=== PATIENT | male | born 1950 | race Caucasian/White ===

== ENCOUNTER → 2024-08-24 | Outpatient (CLI) | payer OTHER, SELFPAY ==
--- NOTE | 2024-08-24 07:55 | ECHOD_ITS ---
Reason For Study Reason For Study: Syncope Procedure This was a 2D Doppler, Color Flow transthoracic echocardiogram. Exam performed in department. Left Ventricle Normal LV size. The left ventricular ejection fraction is 65 %. Stage 1 diastolic dysfunction. No regional wall motion abnormalities noted. Right Ventricle Normal RV size. Normal systolic function. Atria Normal left atrium. Normal right atrium. Mitral Valve Normal mitral valve. Tricuspid Valve Normal tricuspid valve. Aortic Valve Trisinus/trileaflet aortic valve. Pulmonic Valve Normal pulmonic valve. Great Vessels Normal aortic root. The pulmonary artery is normal size. Inferior vena cava collapse with respiration. Pericardium/Pleural No pericardial effusion. MMode/2D Measurements & Calculations LVIDd: 5.0 cm IVSd: 1.2 cm Ao root diam: 3.9 cm LVIDs: 3.3 cm LVPWd: 1.2 cm RVDd: 3.1 cm FS: 34.0 % LAV(MOD-bp): 42.2 ml LVAd ap4: 30.9 cm2 SV(MOD-sp4): 68.9 ml LAV(MOD-bp) Indexed: 23.1 ml/m2 LVLd ap4: 7.4 cm SI(MOD-sp4): 37.8 ml/m2 LAV(MOD-sp2): 47.0 ml EDV(MOD-sp4): 105.1 ml LAV(MOD-sp4): 38.1 ml EDV(sp4-el): 110.0 ml LVAs ap4: 15.8 cm2 LVLs ap4: 6.0 cm ESV(MOD-sp4): 36.2 ml ESV(sp4-el): 35.1 ml EF(MOD-sp4): 65.6 % EF(sp4-el): 68.1 % SV(sp4-el): 74.9 ml LA A4 area: 15.4 cm2 LA dimension(2D): 4.4 cm RA A4 area: 14.4 cm2 TAPSE: 2.6 cm Time Measurements MV dec time: 0.24 sec Doppler Measurements & Calculations MV E max price: 86.5 cm/sec Lat Peak E' Price: 7.7 cm/sec Med Peak E' Price: 8.8 cm/sec MV A max price: 95.2 cm/sec E/E' lat: 11.2 E/E' med: 9.8 MV E/A: 0.91 MV V2 max: 135.9 cm/sec MV P1/2t max price: 101.2 cm/sec Ao V2 max: 147.4 cm/sec MV max P.4 mmHg MV P1/2t: 92.8 msec Ao max P.7 mmHg MV V2 mean: 65.5 cm/sec Ao V2 mean: 102.6 cm/sec MV mean P.0 mmHg MV dec slope: 319.3 cm/sec2 Ao mean P.8 mmHg MV V2 VTI: 43.2 cm MVA(P1/2t): 2.4 cm2 Ao V2 VTI: 37.0 cm AV (velocity ratio): 0.78 LV V1 max: 124.4 cm/sec PA V2 max: 125.2 cm/sec LV V1 max P.2 mmHg PA V2 mean: 81.9 cm/sec LV V1 mean P.1 mmHg LV V1 mean: 80.7 cm/sec LV V1 VTI: 28.9 cm ECHO/Echo Complete Interpretation Summary Normal LV size. The left ventricular ejection fraction is 65 %. Stage 1 diastolic dysfunction. Structurally normal valves. Ordering Physician: Cl Brooks Referring Physician: Cl Brooks Performed By: Charlie Mccann RCS
--- OUTSIDE RECORDS SUMMARY | 2024-08-24 08:05 | XMS RPT_ITS | CCD ---
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 [facility] Comment on above: Performed By: #### M DW, ALC, ADIFF, PRO, CMP, APTT, LAC, GFR, ANEU, CBC, ABSGEL, ABOM ####[address] [address] Lymphocytes/100 WBC (Bld) 5.5 % Low 20.0-40.0 [facility] Comment on above: Performed By: #### M DW, ALC, ADIFF, PRO, CMP, APTT, LAC, GFR, ANEU, CBC, ABSGEL, ABOM ####[place] [id number] [address] [place] [address] Monocyte, Absolute 0.6 10 3/mcL Normal 0.1-1.4 [facility] Comment on above: Performed By: #### M DW, ALC, ADIFF, PRO, CMP, APTT, LAC, GFR, ANEU, CBC, ABSGEL, ABOM ####[address] [address] Monocytes/100 WBC (Bld) 4.7 % Normal 2.0-13.0 [facility] Comment on above: Performed By: #### M DW, ALC, ADIFF, PRO, CMP, APTT, LAC, GFR, ANEU, CBC, ABSGEL, ABOM ####[address] [address] Neutrophils/100 WBC (Bld) 89.5 % High 50.0-75.0 [facility] Comment on above: Performed By: #### M DW, ALC, ADIFF, PRO, CMP, APTT, LAC, GFR, ANEU, CBC, ABSGEL, ABOM ####[address] [address] .GFRon 04-25-2024 Estimated Glomerular Filtration Rate 90 ml/min/1.73sqm Normal [facility] Comment on above: Result Comment: Stages of Chronic Kidney Disease (CKD) Stage Description eGFR(ml/min/1.73 sq.m.) CKD 1 Normal kidney function or >=90 normal kindney function with possible kidney damage (ex. Proteinuria) CKD 2 Kidney damage with mild loss 60-89 of kidney function CKD 3a Mild to moderate loss of kidney 45-59 function CKD 3b Moderate to severe loss of 30-44 of kindey function CKD 4 Severe loss of kidney function 15-29 CKD 5 Kidney failure <15 Note: (go live 2024) the eGFR calculation was updated to the 2020 CKD-EPI creatinine equation without a race factor to calculate the eGFR results. Performed By: #### M DW, ALC, ADIFF, PRO, CMP, APTT, LAC, GFR, ANEU, CBC, ABSGEL, ABOM ####[place] [id number] .MDWon 04-25-2024 Monocyte Distribution Width 18.16 Normal 0.00-20.00 [facility] Comment on above: Result Comment: For ED adult patients suspected of sepsis, MDW<=20.0 does not rule out sepsis or risk of sepsis Performed By: #### M DW, ALC, ADIFF, PRO, CMP, APTT, LAC, GFR, ANEU, CBC, ABSGEL, ABOM ####[place] [address] .NEUABSon 04-25-2024 Neutrophil, Absolute 11.0 10 3/mcL High 2.3-8.1 [facility] Comment on above: Performed By: #### M DW, ALC, ADIFF, PRO, CMP, APTT, LAC, GFR, ANEU, CBC, ABSGEL, ABOM ####[place] [address] ABS (Gel)on 04-25-2024 ABSC Interp (Gel) Negative [facility] Comment on above: Performed By: #### M DW, ALC, ADIFF, PRO, CMP, APTT, LAC, GFR, ANEU, CBC, ABSGEL, ABOM ####[place] [address] Adonay 04-25-2024 Ethanol Level <10.0 [facility] Comment on above: Performed By: #### M DW, ALC, ADIFF, PRO, CMP, APTT, LAC, GFR, ANEU, CBC, ABSGEL, ABOM ####[place] [address] Ethanol Level <3 Normal [facility] Comment on above: Performed By: #### A LC #### [facility] [address] [place], [place] [address] APTTon 04-25-2024 aPTT Coag (Bld) [Time] 29.9 s Normal 25.0-35.0 [facility] Comment on above: Result Comment: For Heparin anticoagulation therapy, the recommended therapeutic range is: 54-77 seconds (APTT Correlation with Anti-Xa therapeutic range of 0.3-0.7 units/ml). PLEASE REFERENCE THE PHARMACY PROTOCOL FOR DOSING. Performed By: #### M DW, ALC, ADIFF, PRO, CMP, APTT, LAC, GFR, ANEU, CBC, ABSGEL, ABOM ####[place] [address] BGon 04-25-2024 Base excess Calc (Bld) [Moles/Vol] -1.8000 mmol/L Normal [facility] Comment on above: Performed By: #### B G ####[place] [address] CO2 [Moles/Vol] 22.3 mmol/L Normal 22.0-30.0 [facility] Comment on above: Performed By: #### B G ####[place] [address] HCO3 (Bld) [Moles/Vol] 21.3 mmol/L Normal 21.0-29.0 [facility] Comment on above: Performed By: #### B G ####[place] [address] Oxygen (Bld) [Partial pressure] 134.8 mm[Hg] High 74.0-108.0 [facility] Comment on above: Performed By: #### B G ####[place] [address] Oxygen saturation in Blood 99.2 % High 92.0-96.0 [facility] Comment on above: Performed By: #### B G ####[place] [address] pCO2 31.8 mmHg Low 32.0-46.0 [facility] Comment on above: Performed By: #### B G ####[place] [id number] pH (Bld) 7.444 [pH] Normal 7.380-7.460 [facility] Comment on above: Performed By: #### B G ####[address] [address] [place] [address] Base excess Calc (Bld) [Moles/Vol] -2.5000 mmol/L Normal [facility] Comment on above: Performed By: #### B G #### [address] [address] CO2 [Moles/Vol] 23.8 mmol/L Normal 22.0-30.0 [facility] Comment on above: Performed By: #### B G #### [address] [address] HCO3 (Bld) [Moles/Vol] 22.6 mmol/L Normal 21.0-29.0 [facility] Comment on above: Performed By: #### B G #### [place] [id number] Oxygen (Bld) [Partial pressure] 106.5 mm[Hg] Normal 74.0-108.0 [facility] Comment on above: Performed By: #### B G #### [place] [id number] Oxygen saturation in Blood 98.1 % High 92.0-96.0 [facility] Comment on above: Performed By: #### B G #### [place] [id number] pCO2 40.1 mmHg Normal 32.0-46.0 [facility] Comment on above: Performed By: #### B G #### [address] [address] pH (Bld) 7.368 [pH] Low 7.380-7.460 [facility] Comment on above: Performed By: #### B G #### [address] [address] CBCon 04-25-2024 Erythrocyte distribution width (RBC) [Ratio] 13.7 % Normal 11.5-15.5 [facility] Comment on above: Performed By: #### M DW, ALC, ADIFF, PRO, CMP, APTT, LAC, GFR, ANEU, CBC, ABSGEL, ABOM ####[address] [address] Hematocrit (Bld) [Volume fraction] 40.6 % Normal 40.0-52.0 [facility] Comment on above: Performed By: #### M DW, ALC, ADIFF, PRO, CMP, APTT, LAC, GFR, ANEU, CBC, ABSGEL, ABOM ####[place] [address] Hgb 13.7 G/dL Normal 13.0-17.5 [facility] Comment on above: Performed By: #### M DW, ALC, ADIFF, PRO, CMP, APTT, LAC, GFR, ANEU, CBC, ABSGEL, ABOM ####[place] [address] MCH (RBC) [Entitic mass] 29.5 pg Normal 27.0-33.0 [facility] Comment on above: Performed By: #### M DW, ALC, ADIFF, PRO, CMP, APTT, LAC, GFR, ANEU, CBC, ABSGEL, ABOM ####[place] [address] MCHC 33.8 G/dL Normal 32.0-36.0 [facility] Comment on above: Performed By: #### M DW, ALC, ADIFF, PRO, CMP, APTT, LAC, GFR, ANEU, CBC, ABSGEL, ABOM ####[place] [address] MCV (RBC) [Entitic vol] 87.3 fL Normal 81.0-100.0 [facility] Comment on above: Performed By: #### M DW, ALC, ADIFF, PRO, CMP, APTT, LAC, GFR, ANEU, CBC, ABSGEL, ABOM ####[place] [address] Platelet 202 10 3/mcL Normal 150-450 [facility] Comment on above: Performed By: #### M DW, ALC, ADIFF, PRO, CMP, APTT, LAC, GFR, ANEU, CBC, ABSGEL, ABOM ####[place] [address] Platelet mean volume (Bld) [Entitic vol] 7.9 fL Normal 6.4-10.5 [facility] Comment on above: Performed By: #### M DW, ALC, ADIFF, PRO, CMP, APTT, LAC, GFR, ANEU, CBC, ABSGEL, ABOM ####[address] [address] RBC 4.65 10 6/mcL Normal 4.50-6.00 [facility] Comment on above: Performed By: #### M DW, ALC, ADIFF, PRO, CMP, APTT, LAC, GFR, ANEU, CBC, ABSGEL, ABOM ####[address] [address] WBC 12.3 10 3/mcL High 4.5-10.8 [facility] Comment on above: Performed By: #### M DW, ALC, ADIFF, PRO, CMP, APTT, LAC, GFR, ANEU, CBC, ABSGEL, ABOM ####[place] [address] CBC + DIFFon 04-25-2024 Baso # 0.02 x10EE3/UL Normal 0.00 - 0.10 [facility] Comment on above: Performed By: #### 2 95652 ####[facility],[address] [place] [address] Basophils/100 WBC (Bld) 0.3 % Normal 0.0 - 2.0 [facility] Comment on above: Performed By: #### 2 21133 ####[facility],[address] [place] [address] CBC + DIFF Normal [facility] Comment on above: Result Comment: CBC- COMPLETE BLOOD COUNT Performed By: #### 2 74081 ####[facility],[address] [place] [address] EO # 0.17 x10EE3/UL Normal 0.00 - 0.50 [facility] Comment on above: Performed By: #### 2 27133 ####[facility],[address] [place] [address] Eosinophils/100 WBC (Bld) 2.4 % Normal 0.0 - 7.0 [facility] Comment on above: Performed By: #### 2 35391 ####[facility],[address] [place] [address] Erythrocyte distribution width (RBC) [Ratio] 14.2 % Normal 12.0 - 15.6 [facility] Comment on above: Performed By: #### 2 86048 ####[facility],[address] [place] [address] Hematocrit (Bld) [Volume fraction] 43.2 % Normal 40.0 - 52.0 [facility] Comment on above: Performed By: #### 2 66612 ####[facility],[address] [place] [address] Hemoglobin (Bld) [Mass/Vol] 14.4 g/dL Normal 13.0 - 17.5 [facility] Comment on above: Performed By: #### 2 58267 ####[facility],[address] [place] [address] Lymph # 3.33 x10EE3/UL High 0.80 - 2.80 [facility] Comment on above: Performed By: #### 2 57074 ####[facility],[address] [place], [place] [phone] Lymphocytes/100 WBC (Bld) 48.2 % High 20.0 - 45.0 [facility] Comment on above: Performed By: #### 2 66417 ####[facility],[address] [place], [place] [phone] MANUAL DIFF N/A Normal [facility] Comment on above: Performed By: #### 2 58192 ####[facility],[address] [place], [place] [id number] MCH (RBC) [Entitic mass] 29 pg Normal 27 - 33 [facility] Comment on above: Performed By: #### 2 04121 ####[facility],[address] [place] [address] MCHC 33 X10 3 Normal 32 - 36 [facility] Comment on above: Performed By: #### 2 33707 ####[facility],[address] [place] [address] MCV (RBC) [Entitic vol] 88 fL Normal 81 - 98 [facility] Comment on above: Performed By: #### 2 42569 ####[facility],[address] [place] [address] [place] # 0.49 x10EE3/UL Normal 0.20 - 1.00 [facility] Comment on above: Performed By: #### 2 39199 ####[facility],[address] [place] [address] MONOS % 7.1 % Normal 0.0 - 10.0 [facility] Comment on above: Performed By: #### 2 55708 ####[facility],[address] [place], [place] [phone] Morphology Donte (Bld) [Interp] N/A Normal [facility] Comment on above: Performed By: #### 2 76195 ####[facility],[address] [place] [address] Neut # 2.91 x10EE3/UL Normal 1.50 - 7.10 [facility] Comment on above: Performed By: #### 2 94336 ####[facility],[address] [place], [place] [phone] Neutrophils/100 WBC (Bld) 42.0 % Low 46.0 - 76.0 [facility] Comment on above: Performed By: #### 2 52963 ####[facility],[address] [place] [address] PLATELET 256 x10EE3/UL Normal 150 - 450 [facility] Comment on above: Performed By: #### 2 73464 ####[facility],[address] [place] [address] Platelet mean volume (Bld) [Entitic vol] 7.6 fL Normal 6.4 - 10.5 [facility] Comment on above: Result Comment: AUTO MATED DIFFERENTIAL Performed By: #### 2 71598 ####[facility],[address] [place] [address] RBC 4.91 x 10EE6/UL Normal 4.50 - 6.00 [facility] Comment on above: Performed By: #### 2 98154 ####[facility],[address] [place], [place] [phone] WBC 6.9 x 10EE3/UL Normal 4.5 - 10.8 [facility] Comment on above: Performed By: #### 2 04445 ####[facility],[address] [place] [address] CHEST 1 VIEW (PICC/ET PLACEM ENTon 04-25-2024 CHEST 1 VIEW (PICC/ET PLACEMENT [place] [address] Patient: JAMES GAITAN Phone#: : 1950 Age: 73 Gender: M Pt. Type: ER Account: [id number] Location: [facility] Ordering: DR. KOSTA MEDINA Exam Date: 04/25/2024/16:19 Family Phys: Charge Code: [id number] Physician: [place] Order #: [id number] Dose#: PROCEDURE: CHEST 1 VIEW (PICC/ET PLACEMENT) COMPARISON: None. INDICATIONS: Tube placement. FINDINGS: LUNGS: Normal. No significant pulmonary parenchymal abnormalities. VASCULATURE: Normal. Unremarkable pulmonary vasculature. CARDIAC: Normal. No cardiac silhouette abnormality or cardiomegaly. MEDIASTINUM: Normal. No visible mass or adenopathy. PLEURA: Normal. No effusion or pleural thickening. BONES: Normal. No fracture or visible bony lesion. OTHER: Endotracheal tube is present terminating 5 centimeters above the manuel. Nasogastric tube is present terminating in the gastric body. CONCLUSION: 1. Endotracheal tube terminates above the level the manuel. 2. Nasogastric tube is present terminating in the gastric body. Dictated by: Suzi Rose MD on 04/25/2024 at 16:43 Approved by: Suzi Rose MD on 04/25/2024 at 16:50 Normal [facility] CMPon 04-25-2024 Albumin Level 3.9 G/dL Normal 3.2-4.8 [facility] Comment on above: Performed By: #### M DW, ALC, ADIFF, PRO, CMP, APTT, LAC, GFR, ANEU, CBC, ABSGEL, ABOM ####[address] [address] Albumin/Globulin [Mass ratio] 1.5 {ratio} Normal 0.9-1.6 [facility] Comment on above: Performed By: #### M DW, ALC, ADIFF, PRO, CMP, APTT, LAC, GFR, ANEU, CBC, ABSGEL, ABOM ####[address] [address] ALP [Catalytic activity/Vol] 65 U/L Normal 38-126 [facility] Comment on above: Performed By: #### M DW, ALC, ADIFF, PRO, CMP, APTT, LAC, GFR, ANEU, CBC, ABSGEL, ABOM ####[address] [address] ALT [Catalytic activity/Vol] 23 U/L Normal 12-55 [facility] Comment on above: Performed By: #### M DW, ALC, ADIFF, PRO, CMP, APTT, LAC, GFR, ANEU, CBC, ABSGEL, ABOM ####[address] [address] AST [Catalytic activity/Vol] 26 U/L Normal 8-34 [facility] Comment on above: Performed By: #### M DW, ALC, ADIFF, PRO, CMP, APTT, LAC, GFR, ANEU, CBC, ABSGEL, ABOM ####[address] [address] Bili Total 0.60 mg/dL Normal 0.20-1.20 [facility] Comment on above: Result Comment: Use of this assay is not recommended for patients undergoing treatment with eltrombopag due to the potential for falsely elevated results. Performed By: #### M DW, ALC, ADIFF, PRO, CMP, APTT, LAC, GFR, ANEU, CBC, ABSGEL, ABOM ####[place] [address] BUN/Creatinine Ratio 12.5 ratio Normal 10.0-22.0 [facility] Comment on above: Performed By: #### M DW, ALC, ADIFF, PRO, CMP, APTT, LAC, GFR, ANEU, CBC, ABSGEL, ABOM ####[place] [id number] Calcium [Mass/Vol] 8.6 mg/dL Low 8.7-10.4 [facility] Comment on above: Performed By: #### M DW, ALC, ADIFF, PRO, CMP, APTT, LAC, GFR, ANEU, CBC, ABSGEL, ABOM ####[place] [phone] Chloride [Moles/Vol] 105 mmol/L Normal 98-110 [facility] Comment on above: Performed By: #### M DW, ALC, ADIFF, PRO, CMP, APTT, LAC, GFR, ANEU, CBC, ABSGEL, ABOM ####[place] [phone] CO2 [Moles/Vol] 27 mmol/L Normal 22-32 [facility] Comment on above: Performed By: #### M DW, ALC, ADIFF, PRO, CMP, APTT, LAC, GFR, ANEU, CBC, ABSGEL, ABOM ####[place] [phone] Creatinine [Mass/Vol] 0.88 mg/dL Normal 0.60-1.40 [facility] Comment on above: Result Comment: Test ing performed on Farman analyzer using enzymatic creatinine methodology. Performed By: #### M DW, ALC, ADIFF, PRO, CMP, APTT, LAC, GFR, ANEU, CBC, ABSGEL, ABOM ####[place] [address] Electrolyte Balance 7.0 mEq/L Normal 4.0-15.0 [facility] Comment on above: Performed By: #### M DW, ALC, ADIFF, PRO, CMP, APTT, LAC, GFR, ANEU, CBC, ABSGEL, ABOM ####[address] [address] Globulin 2.6 G/dL Normal 1.5-3.8 [facility] Comment on above: Performed By: #### M DW, ALC, ADIFF, PRO, CMP, APTT, LAC, GFR, ANEU, CBC, ABSGEL, ABOM ####[address] [address] Glucose [Mass/Vol] 142 mg/dL High 82-115 [facility] Comment on above: Performed By: #### M DW, ALC, ADIFF, PRO, CMP, APTT, LAC, GFR, ANEU, CBC, ABSGEL, ABOM ####[address] [address] Potassium [Moles/Vol] 3.6 mmol/L Normal 3.5-5.0 [facility] Comment on above: Performed By: #### M DW, ALC, ADIFF, PRO, CMP, APTT, LAC, GFR, ANEU, CBC, ABSGEL, ABOM ####[address] [address] Sodium [Moles/Vol] 139 mmol/L Normal 136-145 [facility] Comment on above: Performed By: #### M DW, ALC, ADIFF, PRO, CMP, APTT, LAC, GFR, ANEU, CBC, ABSGEL, ABOM ####[address] [address] Total Protein 6.5 G/dL Normal 5.7-8.2 [facility] Comment on above: Performed By: #### M DW, ALC, ADIFF, PRO, CMP, APTT, LAC, GFR, ANEU, CBC, ABSGEL, ABOM ####[address] [address] Urea nitrogen [Mass/Vol] 11.0 mg/dL Normal 8.0-22.0 [facility] Comment on above: Performed By: #### M DW, ALC, ADIFF, PRO, CMP, APTT, LAC, GFR, ANEU, CBC, ABSGEL, ABOM ####[facility] [place] [address] CMP with eGFRon 04-25-2024 AGE 73 years Normal [facility] Comment on above: Performed By: #### 2 98436 ####[facility],[address] [place] [address] Albumin [Mass/Vol] 4.4 g/dL Normal 3.4 - 5.0 [facility] Comment on above: Performed By: #### 2 80418 ####[facility],[address] [place] [address] Albumin/Globulin [Mass ratio] 1.6 {ratio} Normal 0.9 - 1.6 [facility] Comment on above: Performed By: #### 2 74382 ####[facility],[address] [place] [address] ALK PHOS 78 U/L Normal 46 - 116 [facility] Comment on above: Performed By: #### 2 98351 ####[facility],[address] [place] [address] ALT [Catalytic activity/Vol] 27 U/L Normal 16 - 63 [facility] Comment on above: Performed By: #### 2 41261 ####[facility],[address] [place] [address] Anion gap [Moles/Vol] 13 mmol/L Normal 10 - 20 [facility] Comment on above: Performed By: #### 2 18896 ####[address] [address] AST [Catalytic activity/Vol] 22 U/L Normal 15 - 37 [facility] Comment on above: Performed By: #### 2 36926 ####[address] [address] B/C RATIO 12 ratio Normal 0 - 30 [facility] Comment on above: Performed By: #### 2 91102 ####[facility],[address] [place] [address] Bilirubin [Mass/Vol] 0.4 mg/dL Normal 0.2 - 1.0 [facility] Comment on above: Performed By: #### 2 68968 ####[facility],[address] [place] [address] Calcium [Mass/Vol] 8.4 mg/dL Low 8.5 - 10.1 [facility] Comment on above: Performed By: #### 2 21424 ####[facility],[address] [place] [address] Chloride [Moles/Vol] 106 mmol/L Normal 98 - 107 [facility] Comment on above: Performed By: #### 2 83877 ####[facility],[address] [place], [place] [phone] CMP with eGFR Normal [facility] Comment on above: Result Comment: COMP REHENSIVE METABOLIC PANEL Performed By: #### 2 29882 ####[facility],[address] [place] [address] CO2 [Moles/Vol] 29.7 mmol/L Normal 21.0 - 32.0 [facility] Comment on above: Performed By: #### 2 77273 ####[facility],[address] [place] [address] Creatinine [Mass/Vol] 1.08 mg/dL Normal 0.70 - 1.30 [facility] Comment on above: Performed By: #### 2 84024 ####[facility],[address] [place] [address] GFR/1.73 sq M.predicted among non-blacks MDRD (S/P/Bld) [Vol rate/Area] mL/min/{1.73_m2} Normal 60 - 999 [facility] Comment on above: Performed By: #### 2 60500 ####[facility],[address] [place] [address] Result Comment: ACCO RDING TO THE NATIONAL KIDNEY DISEASE EDUCATION PROGRAM(NKDE), A NORMAL eGFR IS A VALUE GREATER THAN OR EQUAL TO 60 ML/MIN/1.73 SQ METERS. CHRONIC KIDNEY DISEASE: <60mL/MIN/1.73 SQ METERS KIDNEY FAILURE: <15mL/MIN/1.73 SQ METERS THIS TEST SHOULD ONLY BE USED FOR PATIENTS 18 YEARS OF AGE AND OLDER. Globulin (S) [Mass/Vol] 2.7 g/dL Normal 1.5 - 3.8 [facility] Comment on above: Performed By: #### 2 [id number] ####[facility],[address] [place] [address] Glucose [Mass/Vol] 118 mg/dL High 74 - 106 [facility] Comment on above: Performed By: #### 2 [id number] ####[facility],[address] [place] [address] Potassium [Moles/Vol] 3.7 mmol/L Normal 3.5 - 5.1 [facility] Comment on above: Performed By: #### 2 [id number] ####[facility],[address] [place] [address] Protein [Mass/Vol] 7.1 g/dL Normal 6.4 - 8.2 [facility] Comment on above: Performed By: #### 2 [id number] ####[facility],[address] [place] [address]998 Sodium [Moles/Vol] 145 mmol/L Normal 136 - 145 [facility] Comment on above: Performed By: #### 2 [id number] ####[facility],[address] [place] [address]10 Urea nitrogen [Mass/Vol] 13 mg/dL Normal 7 - 18 [facility] Comment on above: Performed By: #### 2 [id number] ####[address],[place] [address] CT BRAIN W/O CONTRASTon 04-08 CT BRAIN W/O CONTRAST [address] [address] Patient: JAMES GAITAN Phone#: : 1950 Age: 73 Gender: M Pt. Type: ER Account: [id number] Location: 052 Ordering: DR. KOSTA MEDINA Exam Date: 04/25/2024/15:16 Family Phys: Charge Code: [id number] Physician: [place] Order #: [id number] Dose#: 52.7 This report includes an Addendum and supersedes previous reports for this exam. PROCEDURE: CT BRAIN WITHOUT CONTRAST COMPARISON: None. INDICATIONS: Trauma. TECHNIQUE: CT images were obtained without contrast material. All CT scans at this facility use dose modulation, iterative reconstruction, and/or weight based dosing when appropriate to reduce radiation dose to as low as reasonably achievable. IV CONTRAST: No IV contrast used,0ml TOTAL DOSE: 52.7 CTDIvol(mGy) FINDINGS: CEREBRUM: Atrophic changes are present. In the right frontal lobe there is parenchymal hemorrhage/contusion measuring 6 x 14 by 7 millimeters. Trace subdural hemorrhage cannot be excluded. CEREBELLUM: No edema, hemorrhage, mass, acute infarction, or inappropriate atrophy. BRAINSTEM: No edema, hemorrhage, mass, acute infarction, or inappropriate atrophy. CSF SPACES: Ventricles, cisterns, and sulci are appropriate for age. No hydrocephalus, subarachnoid hemorrhage, or mass. Trace right frontal subdural hemorrhage cannot be excluded. SKULL: Frontal scalp hematoma is present. SINUSES: And in the ethmoid and maxillary sinuses. ORBITS: Limited views are unremarkable. OTHER: Negative. CONCLUSION: 1. Right frontal parenchymal hemorrhage/contusion. Trace subdural hematoma cannot be excluded. Continued Report - Page 2 of 2 Patient: JAMES GAITAN Phone#: : 1950 Age: 73 Gender: M Pt. Type: ER Account: [id number] Location: 052 Ordering: DR. KOSTA MEDINA Exam Date: 04/25/2024/15:16 Family Phys: Charge Code: [id number] Physician: [place] Order #: [id number] Dose#: [id number] 2. This report was communicated by telephone to Dr. Kosta Medina at the dictation time shown below. Dictated by: Suzi Rose MD on 04/25/2024 at 15:39 Approved by: Suzi Rose MD on 04/25/2024 at 15:51 ADDENDUM: Mucosal thickening is present in the maxillary and ethmoid sinuses. Dictated by: Suzi Rose MD on 04/25/2024 at 16:03 Approved by: Suzi Rose MD on 04/25/2024 at 16:04 Normal [facility] CT CERVICAL W/O CONTRASTon 0 04-25-2024 CT CERVICAL W/O CONTRAST [place] [address] Patient: JAMES GAITAN Phone#: : 1950 Age: 73 Gender: M Pt. Type: ER Account: [id number] Location: 052 Ordering: DR. KOSTA MEDINA Exam Date: 04/25/2024/15:16 Family Phys: Charge Code: [id number] Physician: [place] Order #: [id number] Dose#: [id number] PROCEDURE: CT CERVICAL WITHOUT CONTRAST COMPARISON: None. INDICATIONS: Trauma. TECHNIQUE: Multi-planar CT images were created without intravenous contrast. All CT scans at this facility use dose modulation, iterative reconstruction, and/or weight-based dosing when appropriate to reduce radiation dose to as low as reasonably achievable. IV CONTRAST: No IV contrast used,0ml TOTAL DOSE: 9.30 CTDIvol(mGy) FINDINGS: CRANIOCERVICAL AREA: Normal foramen magnum with no Chiari malformation. PARASPINAL AREA: Normal with no visible mass. BONES: No fracture, pars defect, or osseous lesion. CERVICAL DISC LEVELS: C2-C3: No significant disc/facet abnormality, spinal stenosis, or foraminal stenosis. C3-C4: Minimal endplate hypertrophy is present. There is mild left foraminal impingement. C4-C5: Disc space narrowing is present. Endplate osteophytes are present with narrowing of the foramina bilaterally. C5-C6: Disc space narrowing is present. Endplate hypertrophy is present narrowing of the foramina bilaterally. C6-C7: Mild disc space narrowing is present. The foramina are patent. C7-T1: No significant disc/facet abnormality, spinal stenosis, or foraminal stenosis. CONCLUSION: 1. Degenerative changes are present most marked at the C4-5, C5-6 and C6-7 levels. 2. There is no evidence of acute fracture or subluxation. Dictated by: Suzi Rose MD on 04/25/2024 at 15:51 Continued Report - Page 2 of 2 Patient: JAMES GAITAN Phone#: : 1950 Age: 73 Gender: M Pt. Type: ER Account: [id number] Location: 052 Ordering: DR. KOSTA MEDINA Exam Date: 04/25/2024/15:16 Family Phys: Charge Code: [id number] Physician: [place] Order #: [id number] Dose#: 9.30 Approved by: Suzi Rose MD on 04/25/2024 at 15:54 Normal [facility] CT CHEST/ABD/PELVIS C-on CT CHEST/ABD/PELVIS - [place] [address] Patient: JAMES GAITAN Phone#: : 1950 Age: 73 Gender: M Pt. Type: ER Account: [id number] Location: 052 Ordering: DR. KOSTA EMDINA Exam Date: 04/25/2024/15:20 Family Phys: Charge Code: [id number] Physician: [place] Order #: [id number] Dose#: [id number] PROCEDURE: CT CHEST/ABD/PELVIS WO COMPARISON: None. INDICATIONS: Trauma. TECHNIQUE: CT images were obtained without the administration of intravenous contrast material. All CT scans at this facility use dose modulation, iterative reconstruction, and/or weight based dosing when appropriate to reduce radiation dose to as low as reasonably achievable. IV CONTRAST: No IV contrast used,0ml TOTAL DOSE: 9.90 CTDIvol(mGy) FINDINGS: LUNGS: Are present in the lung bases. No visible pulmonary disease. VASCULATURE: Normal. Thrombus cannot be excluded without intravenous contrast. UMU: Normal. No mass or adenopathy. MEDIASTINUM: Normal. No mass or adenopathy. CARDIAC: Normal. No enlargement, pericardial thickening, or significant calcification. PLEURA: Normal. No mass or effusion. CHEST WALL: Normal. No mass or axillary adenopathy. LIVER: Normal. No enlargement, atrophy, abnormal density, or significant focal lesion. BILIARY: Normal. No visible dilatation or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 Normal 50 - 199 mg/dL [facility]; [facility]. Comment on above: Result Comment: Chol esterol Reference Interval: Less than 200 Desirable 200-239 Borderline high risk 240 and above High risk Performed By: #### C BC, ADIFF, ANEU, FE, TSH, CMP, GFR, LIPID #### [place] [address] TSHon 04-11-2019 TSH Qn 1.810 mcIU/mL Normal 0.360-3.740 [facility] ([place]) Comment on above: Performed By: #### C BC, ADIFF, ANEU, FE, TSH, CMP, GFR, LIPID #### [place] [id number] .Auto Diffon 04-10-2019 Ammonia (P) [Mass/Vol] 0.50 10 3/mcL Normal 0.09-1.40 [facility] ([place]) Comment on above: Performed By: #### C BC, ADIFF, ANEU, FE, TSH, CMP, GFR, LIPID #### [place] [address] Basophils (Bld) [#/Vol] 0.00 10 3/mcL Normal 0.00-0.27 [facility] ([place]) Comment on above: Performed By: #### C BC, ADIFF, ANEU, FE, TSH, CMP, GFR, LIPID #### [address] [address] Basophils/100 WBC (Bld) 0.8 % Normal 0.0 - 2.5 % [facility] ([place]) Comment on above: Performed By: #### C BC, ADIFF, ANEU, FE, TSH, CMP, GFR, LIPID #### [address] [address] Eosinophils (Bld) [#/Vol] 0.20 10 3/mcL Normal 0.00-0.65 [facility] ([place]) Comment on above: Performed By: #### C BC, ADIFF, ANEU, FE, TSH, CMP, GFR, LIPID #### [address] [address] Eosinophils/100 WBC (Bld) 3.0 % Normal 0.0 - 6.0 % [facility] ([place]) Comment on above: Performed By: #### C BC, ADIFF, ANEU, FE, TSH, CMP, GFR, LIPID #### [address] [address] Lymphocytes (Bld) [#/Vol] 1.60 10 3/mcL Normal 0.90-4.32 [facility] ([place]) Comment on above: Performed By: #### C BC, ADIFF, ANEU, FE, TSH, CMP, GFR, LIPID #### [address] [address] Lymphocytes/100 WBC (Bld) 27.0 % Normal 20.0 - 40.0 % [facility] ([place]) Comment on above: Performed By: #### C BC, ADIFF, ANEU, FE, TSH, CMP, GFR, LIPID #### [address] [address] Monocytes/100 WBC (Bld) 8.4 % Normal 2.0 - 13.0 % [facility] ([place]) Comment on above: Performed By: #### C BC, ADIFF, ANEU, FE, TSH, CMP, GFR, LIPID #### [address] [address] Neutrophils/100 WBC (Bld) 60.8 % Normal 50.0 - 75.0 % [facility] ([place]) Comment on above: Performed By: #### C BC, ADIFF, ANEU, FE, TSH, CMP, GFR, LIPID #### [address] [address] .NEUABSon 04-10-2019 Neutrophils (Bld) [#/Vol] 3.50 10 3/mcL Normal 2.25-8.10 [facility] ([place]) Comment on above: Performed By: #### C BC, ADIFF, ANEU, FE, TSH, CMP, GFR, LIPID #### [address] [address] CBCon 04-10-2019 Erythrocyte distribution width (RBC) [Ratio] 13.9 % Normal 11.5 - 15.5 % [facility], [facility].; [facility], [place]. Comment on above: Performed By: #### C BC, ADIFF, ANEU, FE, TSH, CMP, GFR, LIPID #### [place] [address] Hematocrit (Bld) [Volume fraction] 42.7 % Normal 40.0 - 52.0 % [facility].; [facility] Comment on above: Performed By: #### C BC, ADIFF, ANEU, FE, TSH, CMP, GFR, LIPID #### [place] [address] Hemoglobin (Bld) [Mass/Vol] 14.3 G/dL Normal 13.0 - 17.5 g/dL [facility].; [facility], [employer] Comment on above: Performed By: #### C BC, ADIFF, ANEU, FE, TSH, CMP, GFR, LIPID #### [place] [id number] MCH (RBC) [Entitic mass] 29.7 pg Normal 27.0 - 33.0 pg [facility], [place].; [facility], [place]. Comment on above: Performed By: #### C BC, ADIFF, ANEU, FE, TSH, CMP, GFR, LIPID #### [address] [address] MCHC (RBC) [Mass/Vol] 33.5 G/dL Normal 32.0 - 36.0 g/dL [facility].; [facility]. Comment on above: Performed By: #### C BC, ADIFF, ANEU, FE, TSH, CMP, GFR, LIPID #### [address] [address] MCV (RBC) [Entitic vol] 88.6 fL Normal 81.0 - 100.0 fL [facility].; [facility]. Comment on above: Performed By: #### C BC, ADIFF, ANEU, FE, TSH, CMP, GFR, LIPID #### [address] [address] Platelet mean volume (Bld) [Entitic vol] 7.9 fL Normal 6.4 - 10.5 fL [facility].; [facility]. Comment on above: Performed By: #### C BC, ADIFF, ANEU, FE, TSH, CMP, GFR, LIPID #### [address] [address] Platelets (Bld) [#/Vol] 230 10 3/mcL Normal 150-450 [facility] ([place]) Comment on above: Performed By: #### C BC, ADIFF, ANEU, FE, TSH, CMP, GFR, LIPID #### [address] [address] RBC (Bld) [#/Vol] 4.82 10 6/mcL Normal 4.50-6.00 [facility] ([place]) Comment on above: Performed By: #### C BC, ADIFF, ANEU, FE, TSH, CMP, GFR, LIPID #### [address] [address] WBC (Bld) [#/Vol] 5.80 10 3/mcL Normal 4.50-10.80 [facility] ([place]) Comment on above: Performed By: #### C BC, ADIFF, ANEU, FE, TSH, CMP, GFR, LIPID #### [place] [address] Laboratory - Chemistry and C hemistry - challengeon 04-10-2019 Albumin BCP dye [Mass/Vol] 4.3 g/dL Normal 3.2 - 4.8 g/dL [facility] [employer] [facility] [place] [employer] [facility] [place] [employer] ALT No additional P-5'-P [Catalytic activity/Vol] 27 U/L Normal 12 - 55 U/L [facility] [place].; [facility] - [facility] [employer] [facility] [place] [employer] ALT With P-5'-P [Catalytic activity/Vol] 27 U/L Normal 12 - 55 U/L [facility] [place], [employer].; [facility] [employer] [facility] [place] [employer] AST With P-5'-P [Catalytic activity/Vol] 19 U/L Normal 8 - 34 U/L [facility] [place], [employer] Bilirubin [Mass/Vol] 0.3 mg/dL Normal 0.2 - 1 .2 mg/dL [facility] [place], [place].; [employer] [facility] [place], [employer] GFR/1.73 sq M.predicted among blacks MDRD (S/P/Bld) [Vol rate/Area] mL/min/{1.73_m2} Normal [employer] [facility] [place], [employer].; [employer] [facility] [employer] [facility] [place] [employer] Work Phone: GFR/1.73 sq M.predicted among non-blacks MDRD (S/P/Bld) [Vol rate/Area] mL/min/{1.73_m2} Normal [facility] [employer] [facility] [place], [employer].; [facility] [facility] [employer] [facility] [place], [employer] Work Phone: Magnesium [Mass/Vol] 0.3 mg/dL Normal 0.2 - 1 .2 mg/dL [facility] [place], [place].; [employer] [facility] [place], [employer] TSH Qn 1.810 m[IU]/L Normal 0.360 - 3.740 {mcIU/mL} [facility], [facility]. Urea nitrogen/Creatinine [Mass ratio] 13.5 {ratio} Normal 10.0 - 22.0 {ratio} [facility]. Laboratory - Hematology and Cell countson 04-10-2019 Basophils (Bld) [#/Vol] 0.00 {10^3/mcL} Normal 0.00 - 0.27 {10^3/mcL} [facility], [facility]. Work Phone: Eosinophils (Bld) [#/Vol] 0.20 {10^3/mcL} Normal 0.00 - 0.65 {10^3/mcL} [facility], [facility]. Work Phone: Lymphocytes (Bld) [#/Vol] 1.60 {10^3/mcL} Normal 0.90 - 4.32 {10^3/mcL} [facility], [employer]. Work Phone: Monocytes (Bld) [#/Vol] 0.50 {10^3/mcL} Normal 0.09 - 1.40 {10^3/mcL} [facility] [employer] [facility] [place], [place]. Work Phone: Neutrophils (Bld) [#/Vol] 3.50 {10^3/mcL} Normal 2.25 - 8.10 {10^3/mcL} [facility].; [facility], [facility]. Work Phone: Platelets (Bld) [#/Vol] 230 {10^3/mcL} Normal 150 - 450 {10^3/mcL} [facility] [employer] [facility] [place].; [facility], [facility] RBC (Bld) [#/Vol] 4.82 {10^6/mcL} Normal 4.50 - 6.00 {10^6/mcL} [facility], [place]. WBC (Bld) [#/Vol] 5.80 {10^3/mcL} Normal 4.50 - 10.80 {10^3/mcL} [facility] [employer] [facility] [place].; [facility], [employer]. No Panel Informationon 04-10 BUN/Creatinine Ratio 13.5 {ratio} Normal 10.0 - 22.0 {ratio} [facility] [place].; [facility] [employer] [facility] [place]. Eosinophil, Absolute 0.20 {10^3/mcL} Normal 0.00 - 0.65 {10^3/mcL} [facility] [employer] [facility] [place].; [facility] [employer] [facility] [place]. Work Phone: Vital Signs Date Time Vital Sign Value Performing Clinician Facility 07-19-2024 10:50-0400 Body height 163.83 cm No Primary Care Physician [facility] 07-19-2024 10:50-0400 Body mass index (BMI) [Ratio] 28.9 kg/m2 No Primary Care Physician [facility] 07-19-2024 10:50-0400 Body weight 77.56 kg No Primary Care Physician [facility] 07-19-2024 10:50-0400 Diastolic blood pressure 81 mm[Hg] No Primary Care Physician [facility] 07-19-2024 10:50-0400 Heart rate 51 /min No Primary Care Physician [facility] 07-19-2024 10:50-0400 Respiratory rate 16 /min No Primary Care Physician [facility] 07-19-2024 10:50-0400 Systolic blood pressure 180 mm[Hg] No Primary Care Physician [facility] 05-02-2024 14:11-0500 Body height 165.1 cm DARLINE GAITAN RN [facility] [employer] [facility] [place] [employer] [facility] [place]. 05-02-2024 14:11-0500 Body mass index (BMI) [Ratio] 28.12 kg/m2 DARLINE GAITAN RN [facility] [place].; [facility] [employer] [facility] [place]. 05-02-2024 14:11-0500 Body surface area Derived from formula 1.84 m2 DARLINE GAITAN RN [facility] 05-02-2024 14:11-0500 Body weight 76.66 kg DARLINE GAITAN RN [facility]. 05-02-2024 14:11-0500 Diastolic blood pressure 71 mm[Hg] DARLINE GAITAN RN [facility]. Comment on above: Patient Position: Sitting; Cuff Location : Left Arm; Cuff Size: Standard 05-02-2024 14:11-0500 Heart rate 64 /min DARLINE GAITAN RN [facility]. Comment on above: Pattern: Regular 05-02-2024 14:11-0500 Systolic blood pressure 152 mm[Hg] DARLINE GAITAN RN [facility]. Comment on above: Patient Position: Sitting; Cuff Location : Left Arm; Cuff Size: Standard 04-28-2024 13:02-0500 Diastolic Blood Pressure Non-Invasive 67 mm[Hg] REMINGTON JOSHI MD [address] [place] [address] 04-28-2024 13:02-0500 Systolic Blood Pressure Non-Invasive 129 mm[Hg] REMINGTON JOSHI MD [facility] 04-28-2024 12:26-0500 Diastolic Blood Pressure Non-Invasive 80 mm[Hg] REMINGTON JOSHI MD [facility] 04-28-2024 12:26-0500 Systolic Blood Pressure Non-Invasive 158 mm[Hg] REMINGTON JOSHI MD [facility] 04-28-2024 11:34-0500 Diastolic Blood Pressure Non-Invasive 84 mm[Hg] REMINGTON JOSHI MD [facility] 04-28-2024 11:34-0500 Systolic Blood Pressure Non-Invasive 157 mm[Hg] REMINGTON JOSHI MD [address] [place] [address] 04-28-2024 11:29-0500 Blood Pressure Location REMINGTON JOSHI MD [address] [place] [address] 04-28-2024 11:25-0500 Blood Pressure Location REMINGTON JOSHI MD [address] [place] [address] 04-28-2024 11:25-0500 Body temperature 98.42 [degF] REMINGTON JOSHI MD [address] [place] [id number] 04-28-2024 11:25-0500 Heart rate 70 /min REMINGTON JOSHI MD [address] [place] [address] 04-28-2024 11:25-0500 Heart rate 77 /min REMINGTON JOSHI MD [address] [place] [address] 04-28-2024 11:25-0500 Respiratory rate 16 /min REMINGTON JOSHI MD [address] [place] [address] 04-28-2024 09:58-0500 Heart rate 66 /min REMINGTON JOSHI MD [address] [place] [address] 04-28-2024 07:55-0500 Body temperature 98.78 [degF] REMINGTON JOSHI MD [address] [place] [address] 04-28-2024 07:55-0500 Heart rate 69 /min REMINGTON JOSHI MD [address] [place] [address] 04-28-2024 07:55-0500 Respiratory rate 18 /min REMINGTON JOSHI MD [address] [place] [address] 04-28-2024 06:35-0500 Body temperature 98.24 [degF] REMINGTON JOSHI MD [address] [place] [address] 04-28-2024 06:35-0500 Heart rate 76 /min REMINGTON JOSHI MD [address] [place] [address] 04-28-2024 06:35-0500 Respiratory rate 20 /min REMINGTON JOSHI MD [address] [place] [address] 04-28-2024 04:12-0500 Heart rate 76 /min REMINGTON JOSHI MD [address] [place] [address] 04-27-2024 21:06-0500 Blood Pressure Location REMINGTON JOSHI MD [address] [place] [address] 04-27-2024 21:06-0500 Blood Pressure Method REMINGTON JOSHI MD [address] [place] [address] 04-27-2024 19:46-0500 Blood Pressure Method REMINGTON JOSHI MD [address] [place] [address] 04-27-2024 19:46-0500 Reason For Taking VItal Signs REMINGTON JOSHI MD [address] [place] [address] 04-27-2024 14:56-0500 Reason For Taking VItal Signs REMINGTON JOSHI MD [address] [place] [address] 04-27-2024 02:44-0500 Heart rate 76 /min REMINGTON JOSHI MD [address] [place] [address] 04-27-2024 00:12-0500 Heart rate 74 /min REMINGTON JOSHI MD [address] [place] [address] 04-26-2024 19:33-0500 Mean blood pressure 93 mm[Hg] REMINGTON JOSHI MD [address] [place] [address] 04-26-2024 18:43-0500 Heart rate 71 /min REMINGTON JOSHI MD [address] [place] [address] 04-26-2024 18:43-0500 Mean blood pressure 94 mm[Hg] REMINGTON JOSHI MD [address] [place] [place] [address] 04-26-2024 18:43-0500 Reason For Taking VItal Signs REMINGTON JOSHI MD [address] 04-26-2024 16:16-0500 Mean blood pressure 86 mm[Hg] REMINGTON JOSHI MD [address] [place] [address] 04-26-2024 03:33-0500 SaO2% (BldA) [Mass fraction] 98.7 % REMINGTON JOSHI MD [facility] 04-25-2024 21:27-0500 Body height 165.1 cm REMINGTON JOSHI MD [address] [place] [address] 04-25-2024 21:27-0500 Body weight 82.6 kg REMINGTON JOSHI MD [address] [place] [place] [address] 04-25-2024 21:27-0500 Body weight 30.3 kg/m2 REMINGTON JOSHI MD [address] 04-25-2024 21:19-0500 SaO2% (BldA) [Mass fraction] 99.2 % REMINGTON JOSHI MD [facility] 04-25-2024 20:33-0500 Body temperature 97.88 [degF] REMINGTON JOSHI MD [facility] 04-25-2024 20:17-0500 SaO2% (BldA) [Mass fraction] 98.1 % REMINGTON JOSHI MD [facility] 04-25-2024 19:42-0500 Body temperature 98.96 [degF] REMINGTON JOSHI MD [address] [place] [place] [address] 04-21-2024 09:41-0500 Diastolic blood pressure 101 mm[Hg] Chadd Sprockel PA-C Work Phone: [facility] 04-21-2024 09:41-0500 Heart rate 56 /min Chadd Sprockel PA-C Work Phone: [facility] 04-21-2024 09:41-0500 Systolic blood pressure 172 mm[Hg] Chadd Sprockel PA-C Work Phone: [facility] 04-21-2024 09:15-0500 Body height 165.1 cm Chadd Sprockel PA-C Work Phone: [facility] 04-21-2024 09:15-0500 Body mass index (BMI) [Ratio] 29.29 kg/m2 Chadd Sprockel PA-C Work Phone: [facility] 04-21-2024 09:15-0500 Body temperature 98.71 [degF] Chadd Sprockel PA-C Work Phone: [facility] 04-21-2024 09:15-0500 Body weight 79.83 kg Chadd Sprockel PA-C Work Phone: [facility] 04-21-2024 09:15-0500 Respiratory rate 12 /min Chadd Sprockel PA-C Work Phone: [facility] 04-21-2024 09:15-0500 SaO2% (BldA) [Mass fraction] 96 % Chadd Sprockel PA-C Work Phone: [facility] 05-21-2022 13:23-0400 Body weight 78.47 kg IKER TOMLIN MD Work Phone: [facility]; [facility] 05-21-2022 13:23-0400 Diastolic blood pressure 92 mm[Hg] IKER TOMLIN MD Work Phone: [facility] [place] [employer] [facility] [place]. Comment on above: Patient Position: Sitting; Cuff Location : Left Arm; Cuff Size: Large 05-21-2022 13:23-0400 Heart rate 56 /min IKER TOMLIN MD Work Phone: [facility] [place] [employer] [facility] [place]. Comment on above: Pattern: Regular 05-21-2022 13:23-0400 Systolic blood pressure 185 mm[Hg] IKER TOMLIN MD Work Phone: [facility] [place] [employer]. Comment on above: Patient Position: Sitting; Cuff Location : Left Arm; Cuff Size: Large 04-10-2019 14:26-0500 Body temperature 98 [degF] IKER TOMLIN MD Work Phone: [facility] [place] [employer]. Comment on above: Method: Oral 04-10-2019 14:26-0500 Body weight 79.83 kg IKER TOMLIN MD Work Phone: [facility] [place] [employer] [facility] [place] 04-10-2019 14:26-0500 Diastolic blood pressure 94 mm[Hg] IKER TOMLIN MD Work Phone: [facility] [employer] [facility] [employer] [facility] [place]. Comment on above: Patient Position: Sitting; Cuff Location : Left Arm; Cuff Size: Standard 04-10-2019 14:26-0500 Heart rate 61 /min IKER TOMLIN MD Work Phone: [facility] [place] [employer] [facility] [place]. Comment on above: Pattern: Regular 04-10-2019 14:26-0500 Systolic blood pressure 162 mm[Hg] IKER TOMLIN MD Work Phone: [facility] [employer] [facility] [employer] [facility] [place]. Comment on above: Patient Position: Sitting; Cuff Location : Left Arm; Cuff Size: Standard Encounters Encounter Date Encounter Type Care Provider Facility Start: 07-19-2024 End: 07-19-[address] Cl Brooks MD -[facility] Work Phone: Start: 07-19-2024 End: 07-19-2024 ambulatory No Primary Care Physician [facility] Work Phone: Start: 07-11-2024 ambulatory TITI GARDNER [facility] Start: 07-10-2024 End: 07-10-2024 ambulatory TITI GARDNER [facility] Start: 07-10-2024 End: 07-10-2024 ambulatory TITI GARDNER [facility] Start: 05-25-2024 End: 05-25-2024 Historical Summary [facility] TOMLIN MD [facility] Start: 05-18-2024 End: 05-19-2024 ambulatory REMINGTON JOSHI MD Facility:A Start: 05-18-2024 End: 05-19-2024 Patient encounter procedure EZEKIEL OMALLEY [facility] Start: 05-12-2024 End: 05-12-2024 Historical Summary IKER TOMLIN MD [facility] Start: 05-09-2024 End: 05-09-2024 Telephone encounter Bhaskar Milian MD Work Phone: Division of Hematology & Oncology Comment on above: Other Start: 05-04-2024 End: 05-04-2024 Telephone encounter Charlene Carpenter RN Division of Hematolo gy & Oncology Comment on above: Other Start: 05-02-2024 End: 05-02-2024 Office outpatient visit 10 minutes IKER TOMLIN MD Work Phone: [facility] Start: 05-02-2024 Follow-up encounter IKER SEVERINO MD Work Phone: [facility] [employer] Start: 05-01-2024 End: 05-01-2024 Historical Summary IKER TOMLIN MD Work Phone: [facility] [employer] 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 Work Phone: Division of Hematology & Oncology Comment on above: Coagulation disorder Start: 04-25-2024 End: 04-28-2024 Evaluation and management of inpatient REMINGTON JOSHI MD [facility] Start: 04-25-2024 End: 04-29-[address] RONNA MEDINA MD Facility:[facility] Start: 04-25-2024 End: 04-29-2024 Encounter for general adult medical examination without abnormal findings DR RONNA MEDINA MD Facility:[facility] Start: 04-25-2024 End: 04-29-[address] RONNA MEDINA MD [facility] Start: 04-25-2024 End: 04-25-2024 Emergency department patient visit IKER TOMLIN [facility] Start: 04-21-2024 End: 04-21-2024 Office outpatient visit 15 minutes Chadd Chatmna PA-C Work Phone: Division of Hematology & Oncology at [facility] 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 Start: 04-11-2019 End: 04-11-2019 Patient encounter procedure IKER TOMLIN MD Work [facility] Start: 04-10-2019 End: 04-10-2019 Office outpatient visit 15 minutes IKER TOMLIN MD [facility] Procedures Date Procedure Procedure Detail Performing Clinician Start: 05-02-2024 End: 05-02-2024 Dischrg meds reconciled w/current med list IKER TOMLIN MD Work Phone: Start: 04-25-2024 End: 04-25-2024 Urinalysis IKER TOMLIN MD Work Phone: Comment on above: Result Comment: URIN ALYSIS Performed By: #### [id number] #### [facility],[address] [place] [address] Start: 05-21-2022 End: 05-21-2022 Dischrg meds reconciled w/current med list IKER TOMLIN MD Work Phone: Start: 04-10-2019 End: 04-10-2019 Dischrg meds reconciled w/current med list IKER TOMLIN MD Work Phone: Start: 04-10-2019 End: 04-10-2019 Urinary Incontinence IKER TOMLIN MD Work Phone: Comment on above: Negative. Malignant neoplastic disease (disorder) REMINGTON JOSHI MD Comment on above: skin cancer removal Varicella or Immuniz ation History IKER TOMLIN MD Work Phone: Comment on above: Had disease. Plan of Treatment Date Care Activity Detail Author Start: 11-06-2024 Influenza vaccination INFLUENZA VACCINE (Season Ended) [facility] Start: 05-14-2025 Evaluation of diagnostic study results [facility] Start: 2024 RSV VACCINE (1 - 1-dose 75+ series) RSV VACCINE (1 - 1-dose 75+ series) [facility] Start: 05-04-2024 Follow-up encounter Medical[facility]- BL[facility] ON BICYCLE [facility] Start: 04-May-2024 10:45-05:00 MD IKER TOMLIN Appointment Request [facility] Start: 05-02-2024 Follow-up encounter Medical; HOSPITAL FOLLOW UP - [facility] 04/28- BLACKED OUT ON BICYCLE RECORDS IN CHART [facility] Start: 02-May-2024 14:00-05:00 MD IKER TOMLIN Appointment Request [facility] Start: 11-07-2023 COVID-19 VACCINE ( season) COVID-19 VACCINE ( season) [facility] Start: 11-07-2023 Influenza vaccination INFLUENZA VACCINE (#1) [facility] Start: 2014 Pneumococcal vaccination PNEUMOCOCCAL VACCINE SERIES (1 of 1 - PCV) [facility] Start: 2009 RSV VACCINE (1 - 1-dose 60+ series) RSV VACCINE (1 - 1-dose 60+ series) [facility] Start: 05-27-1999 Pneumococcal vaccination PNEUMOCOCCAL VACCINE SERIES (1 of 1 - PCV) [facility] Start: 05-27-1999 Prostate specific antigen measurement PROSTATE CANCER SCREENING DISCUSSION [facility] Start: 05-27-1999 Zoster vaccine hzv live for subcutaneous use ZOSTER (SHINGLES) VACCINE (1 of 2) [facility] Start: 1994 Screening for malignant neoplasm of colon COLORECTAL CANCER SCREENING DISCUSSION [facility] Start: 1989 Lipid panel LIPID SCREENING [facility] Start: 1968 Third diphtheria, tetanus and acellular pertussis (DTaP) vaccination TDAP (ADULT) [facility] Start: 1950 Hepatitis C screening [facility]PATITIS [facility] Start: 1950 Tetanus vaccination TETANUS [facility] 24 Hour ECG [facility] Immunizations Immunization Date Immunization Notes Care Provider Fa cility influenza virus vaccine, unspecified formulation IKER TOMLIN MD Work Phone: [facility]; [facility] Comment on above: Refused. 04/10/2019 Payers Date Payer Category Payer Unknown 2024 Unknown [id number] Self-pay [id number] 2023 Unknown [id number] 1999 Unknown [id number] 2.16.8 [id number] 1949 Unknown [id number] 2.16.8 [id number] 1949 Unknown [id number] 2.16.8 [id number] 1949 Unknown [id number] 2.16.8 [id number] 1949 Unknown [id number] 2.16.8 [id number] 1949 Unknown [id number] 2.16.8 [id number] 1949 Unknown [id number] 2.16.8 [id number] 1949 Unknown [id number] 2.16.8 [id number] Unknown [id number] Unknown 0 [id number] Unknown [id number] 2.16.8 [id number] Social History Date Type Detail Facility Alcohol Use: Alcohol Use: ; N o Alcohol Use. [facility]; [facility] Tobacco use: Tobacco use: ; N ever smoker. [facility]; [facility] Start: 1950 Male [facility] Start: 05-30-2015 End: 06-12-2024 Never smoked tobacco [facility]; [facility] Work Phone: Start: 05-30-2015 Tobacco use and exposure Smokeless tobacco non-user [facility] Start: 01-22-2023 Alcoholic beverage intake Current non-drinker of alcohol (finding) [facility] Start: 01-22-2023 History of Social function [facility] Start: 01-22-2023 Tobacco use panel [facility] Start: 1950 Sex assigned at Not on file O [facility] Start: 04-25-2015 End: 04-10-2019 Sex Male (finding) [facility] Tobacco smoking status [facility] Functional Status Date Assessment Result Facility 04-28-2024 Functional Status None [facility] 04-28-2024 Functional Status Room check performed [facility] 04-28-2024 Functional Status Mod I [facility] 04-28-2024 Functional Status [facility] 04-28-2024 Functional Status [facility] 04-28-2024 Functional Status bilateral knee high removed/off [facility] 04-28-2024 Functional Status [facility] 04-27-2024 Functional Status [facility] 04-27-2024 Functional Status [facility] 04-27-2024 Functional Status [facility] 04-26-2024 Functional Status Skin Care Prev entative Intervention(s) heel(s)s elevated [facility] 04-26-2024 Functional Status 3pm-7pm [facility] 04-26-2024 Functional Status [facility] 04-26-2024 Functional Status [facility] 04-26-2024 Functional Status Shower Maximum assistan ce [facility] 04-25-2024 Functional Status Sensory Deficits None A [facility] 05-30-2015 Are you deaf, or do you have serious difficulty hearing No 05/30/2015 1:49 PM EDT Charisse Dawson, RN No [facility] 05-30-2015 Are you blind, or do you have serious difficulty seeing, even when wearing glasses No 05/30/2015 1:49 PM EDT Charisse Dawson, RN No [facility] 05-30-2015 Do you have difficul ty dressing or bathing No 05/30/2015 1:49 PM EDT Charisse Dawson, RC No [facility] Mental Status Date Assessment Result Facility 04-28-2024 Mental Status Orientation Oriented x 4 [facility] 04-28-2024 Mental Status [facility] 04-28-2024 Mental Status [facility] 04-26-2024 Mental Status [facility] 04-26-2024 Mental Status [facility] Clinical Notes 12-17-2023 to 07-19-2024 Note Date & Type Note Facility 07-19-2024 Progress note [facility] 07-19-2024 Progress note Note Date/Time July 19, 2024 11:49am [facility] [address] [place] [address]. [address] [place] [address] OFFICE VISIT Date of Service: 07/19/24 MR#: [id number] Acct: [id number] Name: JAMES GAITAN Rep #: [id number] : 1950 Provider: Dr. Dawit Brooks MD Age/Sex: 74/M Location[place] [facility] [place] Status: Signed HPI HPI History of Present Illness Details: 74-year-old man with a previous cardiac history of possible hypertension and history of hemophilia. He presents to see us today because he had an episode ofsyncope a few weeks ago which was unprovoked and sudden. He says that he has had maybe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 doses.Skipping doses also puts you at risk for problems. Ask your doctor about side effects or reactions to medicines that you should watch for. Contact a doctor if you: Think you are having a reaction to the medicine you are taking. Have headaches that keep coming back (recurring). Feel dizzy. Have swelling in your ankles. Have trouble with your vision. Get help right away if you: Get a very bad headache. Start to feel mixed up (confused). Feel weak or numb. Feel faint. Have very bad pain in your: ?Chest. ?Belly (abdomen). Throw up more than once. Have trouble breathing. Summary Hypertension is another name for high blood pressure. High blood pressure forces your heart to work harder to pump blood. For most people, a normal blood pressure is less than 120/80. Making healthy choices can help lower blood pressure. If your blood pressure does not get lower with healthy choices, you may need to take medicine. This information is not intended to replace advice given to you by your health care provider. Make sure you discuss any questions you have with your health care provider. Document Released: 08/10/2008 Document Revised: 11/02/2018 Document Reviewed: 11/02/2018 [employer] Patient Education 2020 [employer]. 04/28/2024 14:33:43 Hypertension, Adult, Fbfe-gu-Zggl Hypertension, Adult Hypertension is another name for high blood pressure. High blood pressure forces your heart to workharder to pump blood. This can cause problems over time. There are two numbers in a blood pressure reading. There is a top number (systolic) over a bottom number (diastolic). It is best to have a blood pressure that is below 120/80. Healthy choices can help lower your blood pressure, or you may need medicine to help lower it. What are the causes? The cause of this condition is not known. Some conditions may be related to high blood pressure. What increases the risk? Smoking. Having type 2 diabetes mellitus, high cholesterol, or both. Not getting enough exercise or physical activity. Being overweight. Having too much fat, sugar, calories, or salt (sodium) in your diet. Drinking too much alcohol. Having long-term (chronic) kidney disease. Having a family history of high blood pressure. Age. Risk increases with age. Race. You may be at higher risk if you are . Gender. Men are at higher risk than women before age 45. After age 65, women are at higher risk than men. Having obstructive sleep apnea. Stress. What are the signs or symptoms? High blood pressure may not cause symptoms. Very high blood pressure (hypertensive crisis) may cause: ?Headache. ?Feelings of worry or nervousness (anxiety). ?Shortness of breath. ?Nosebleed. ?A feeling of being sick to your stomach (nausea). ?Throwing up (vomiting). ?Changes in how you see. ?Very bad chest pain. ?Seizures. How is this treated? This condition is treated by making healthy lifestyle changes, such as: ?Eating healthy foods. ?Exercising more. ?Drinking less alcohol. Your health care provider may prescribe medicine if lifestyle changes are not enough to get your blood pressure under control, and if: ?Your top number is above 130. ?Your bottom number is above 80. Your personal target blood pressure may vary. Follow these instructions at home: Eating and drinking If told, follow the DASH eating plan. To follow this plan: ?Fill one half of your plate at each meal with fruits and vegetables. ?Fill one fourth of your plate at each meal with whole grains. Whole grains include whole-wheat pasta, brown rice, and whole-grain bread. ?Eat or drink low-fat dairy products, such as skim milk or low-fat yogurt. ?Fill one fourth of your plate at each meal with low-fat (lean) proteins. Low- fat proteins include fish, chicken without skin, eggs, beans, and tofu. ?Avoid fatty meat, cured and processed meat, or chicken with skin. ?Avoid pre-made or processed food. Eat less than 1,500 mg of salt each day. Do not drink alcohol if: ?Your doctor tells you not to drink. ?You are , may be , or are planning to become . If you drink alcohol: ?Limit how much you use to: ?0 1 drink a day for women. ?0 2 drinks a day for men. ?Be aware of how much alcohol is in your drink. In the [place] one drink equals one 12 oz bottle of beer (355 mL), one 5 oz glass of wine (148 mL), or one 1 oz glass of hard liquor (44 mL). Lifestyle Work with your doctor to stay at a healthy weight or to lose weight. Ask your doctor what the best weight is for you. Get at least 30 minutes of exercise most days of the week. This may include walking, swimming, or biking. Get at least 30 minutes of exercise that strengthens your muscles (resistance exercise) at least 3 days a week. This may include lifting weights or doing Pilates. Do not use any products that contain nicotine or tobacco, such as cigarettes, e- cigarettes, and chewing tobacco. If you need help quitting, ask your doctor. Check your blood pressure at home as told by your doctor. Keep all follow-up visits as told by your doctor. This is important. Medicines Take hoyu-qjk-arhyoug and prescription medicines only as told by your doctor. Follow directions carefully. Do not skip doses of blood pressure medicine. The medicine does not work as well if you skip doses.Skipping doses also puts you at risk for problems. Ask your doctor about side effects or reactions to medicines that you should watch for. Contact a doctor if you: Think you are having a reaction to the medicine you are taking. Have headaches that keep coming back (recurring). Feel dizzy. Have swelling in your ankles. Have trouble with your vision. Get help right away if you: Get a very bad headache. Start to feel mixed up (confused). Feel weak or numb. Feel faint. Have very bad pain in your: ?Chest. ?Belly (abdomen). Throw up more than once. Have trouble breathing. Summary Hypertension is another name for high blood pressure. High blood pressure forces your heart to work harder to pump blood. For most people, a normal blood pressure is less than 120/80. Making healthy choices can help lower blood pressure. If your blood pressure does not get lower with healthy choices, you may need to take medicine. This information is not intended to replace advice given to you by your health care provider. Make sure you discuss any questions you have with your health care provider. Document Released: 08/10/2008 Document Revised: 11/02/2018 Document Reviewed: 11/02/2018 [employer] Patient Education 2020 [employer] 04/28/2024 14:33:42 Hypertension, Adult Hypertension, Adult High blood pressure (hypertension) is when the force of blood pumping through the arteries is too strong. The arteries are the blood vessels that carry blood from the heart throughout the body. Hypertension forces the heart to work harder to pump blood and may cause arteries to become narrow or stiff. Untreated or uncontrolled hypertension can cause a heart attack, heart failure, a stroke, kidneydisease, and other problems. A blood pressure reading consists of a higher number over a lower number. Ideally, your blood pressure should be below 120/80. The first (top) number is called the systolic pressure. It is a measure of the pressure in your arteries as your heart beats. The second (bottom) number is called the diastolic pressure. It is a measure of the pressure in your arteries as the heart relaxes. What are the causes? The exact cause of this condition is not known. There are some conditions that result in or are related to high blood pressure. What increases the risk? Some risk factors for high blood pressure are under your control. The following factors may make you more likely to develop this condition: Smoking. Having type 2 diabetes mellitus, high cholesterol, or both. Not getting enough exercise or physical activity. Being overweight. Having too much fat, sugar, calories, or salt (sodium) in your diet. Drinking too much alcohol. Some risk factors for high blood pressure may be difficult or impossible to change. Some of these factors include: Having chronic kidney disease. Having a family history of high blood pressure. Age. Risk increases with age. Race. You may be at higher risk if you are . Gender. Men are at higher risk than women before age 45. After age 65, women are at higher risk than men. Having obstructive sleep apnea. Stress. What are the signs or symptoms? High blood pressure may not cause symptoms. Very high blood pressure (hypertensive crisis) may cause: Headache. Anxiety. Shortness of breath. Nosebleed. Nausea and vomiting. Vision changes. Severe chest pain. Seizures. How is this diagnosed? This condition is diagnosed by measuring your blood pressure while you are seated, with your arm resting on a flat surface, your legs uncrossed, and your feet flat on the floor. The cuff of the bloodpressure monitor will be placed directly against the skin of your upper arm at the level of your heart. It should be measured at least twice using the same arm. Certain conditions can cause a difference in blood pressure between your right and left arms. Certain factors can cause blood pressure readings to be lower or higher than normal for a short period of time: When your blood pressure is higher when you are in a health care provider's office than when you are at home, this is called white coat hypertension. Most people with this condition do not need medicines. When your blood pressure is higher at home than when you are in a health care provider's office, this is called masked hypertension. Most people with this condition may need medicines to control blood pressure. If you have a high blood pressure reading during one visit or you have normal blood pressure with other risk factors, you may be asked to: Return on a different day to have your blood pressure checked again. Monitor your blood pressure at home for 1 week or longer. If you are diagnosed with hypertension, you may have other blood or imaging tests to help your health care provider understand your overall risk for other conditions. How is this treated? This condition is treated by making healthy lifestyle changes, such as eating healthy foods, exercising more, and reducing your alcohol intake. Your health care provider may prescribe medicine if lifestyle changes are not enough to get your blood pressure under control, and if: Your systolic blood pressure is above 130. Your diastolic blood pressure is above 80. Your personal target blood pressure may vary depending on your medical conditions, your age, and other factors. Follow these instructions at home: Eating and drinking Eat a diet that is high in fiber and potassium, and low in sodium, added sugar, and fat. An exampleeating plan is called the DASH (Dietary Approaches to Stop Hypertension) diet. To eat this way: ?Eat plenty of fresh fruits and vegetables. Try to fill one half of your plate at each meal with fruits and vegetables. ?Eat whole grains, such as whole-wheat pasta, brown rice, or whole-grain bread. Fill about one fourth of your plate with whole grains. ?Eat or drink low-fat dairy products, such as skim milk or low-fat yogurt. ?Avoid fatty cuts of meat, processed or cured meats, and poultry with skin. Fill about one fourth of your plate with lean proteins, such as fish, chicken without skin, beans, eggs, or tofu. ?Avoid pre-made and processed foods. These tend to be higher in sodium, added sugar, and fat. Reduce your daily sodium intake. Most people with hypertension should eat less than 1,500 mg of sodium a day. Do not drink alcohol if: ?Your health care provider tells you not to drink. ?You are , may be , or are planning to become . If you drink alcohol: ?Limit how much you use to: ?0 1 drink a day for women. ?0 2 drinks a day for men. ?Be aware of how much alcohol is in your drink. In the [place] one drink equals one 12 oz bottle of beer (355 mL), one 5 oz glass of wine (148 mL), or one 1 oz glass of hard liquor (44 mL). Lifestyle Work with your health care provider to maintain a healthy body weight or to lose weight. Ask what an ideal weight is for you. Get at least 30 minutes of exercise most days of the week. Activities may include walking, swimming, or biking. Include exercise to strengthen your muscles (resistance exercise), such as Pilates or lifting weights, as part of your weekly exercise routine. Try to do these types of exercises for 30 minutes at least 3 days a week. Do not use any products that contain nicotine or tobacco, such as cigarettes, e- cigarettes, and chewing tobacco. If you need help quitting, ask your health care provider. Monitor your blood pressure at home as told by your health care provider. Keep all follow-up visits as told by your health care provider. This is important. Medicines Take ircu-xev-uyfgrnx and prescription medicines only as told by your health care provider. Follow directions carefully. Blood pressure medicines must be taken as prescribed. Do not skip doses of blood pressure medicine. Doing this puts you at risk for problems and can makethe medicine less effective. Ask your health care provider about side effects or reactions to medicines that you should watch for. Contact a health care provider if you: Think you are having a reaction to a medicine you are taking. Have headaches that keep coming back (recurring). Feel dizzy. Have swelling in your ankles. Have trouble with your vision. Get help right away if you: Develop a severe headache or confusion. Have unusual weakness or numbness. Feel faint. Have severe pain in your chest or abdomen. Vomit repeatedly. Have trouble breathing. Summary Hypertension is when the force of blood pumping through your arteries is too strong. If this condition is not controlled, it may put you at risk for serious complications. Your personal target blood pressure may vary depending on your medical conditions, your age, and other factors. For most people, a normal blood pressure is less than 120/80. Hypertension is treated with lifestyle changes, medicines, or a combination of both. Lifestyle changes include losing weight, eating a healthy, low-sodium diet, exercising more, and limiting alcohol. This information is not intended to replace advice given to you by your health care provider. Make sure you discuss any questions you have with your health care provider. Document Released: 02/22/2006 Document Revised: 11/02/2018 Document Reviewed: 11/02/2018 [employer] Patient Education 2020 [employer]. 04/28/2024 14:33:42 Hypertension, Adult Hypertension, Adult High blood pressure (hypertension) is when the force of blood pumping through the arteries is too strong. The arteries are the blood vessels that carry blood from the heart throughout the body. Hypertension forces the heart to work harder to pump blood and may cause arteries to become narrow or stiff. Untreated or uncontrolled hypertension can cause a heart attack, heart failure, a stroke, kidneydisease, and other problems. A blood pressure reading consists of a higher number over a lower number. Ideally, your blood pressure should be below 120/80. The first (top) number is called the systolic pressure. It is a measure of the pressure in your arteries as your heart beats. The second (bottom) number is called the diastolic pressure. It is a measure of the pressure in your arteries as the heart relaxes. What are the causes? The exact cause of this condition is not known. There are some conditions that result in or are related to high blood pressure. What increases the risk? Some risk factors for high blood pressure are under your control. The following factors may make you more likely to develop this condition: Smoking. Having type 2 diabetes mellitus, high cholesterol, or both. Not getting enough exercise or physical activity. Being overweight. Having too much fat, sugar, calories, or salt (sodium) in your diet. Drinking too much alcohol. Some risk factors for high blood pressure may be difficult or impossible to change. Some of these factors include: Having chronic kidney disease. Having a family history of high blood pressure. Age. Risk increases with age. Race. You may be at higher risk if you are . Gender. Men are at higher risk than women before age 45. After age 65, women are at higher risk than men. Having obstructive sleep apnea. Stress. What are the signs or symptoms? High blood pressure may not cause symptoms. Very high blood pressure (hypertensive crisis) may cause: Headache. Anxiety. Shortness of breath. Nosebleed. Nausea and vomiting. Vision changes. Severe chest pain. Seizures. How is this diagnosed? This condition is diagnosed by measuring your blood pressure while you are seated, with your arm resting on a flat surface, your legs uncrossed, and your feet flat on the floor. The cuff of the bloodpressure monitor will be placed directly against the skin of your upper arm at the level of your heart. It should be measured at least twice using the same arm. Certain conditions can cause a difference in blood pressure between your right and left arms. Certain factors can cause blood pressure readings to be lower or higher than normal for a short period of time: When your blood pressure is higher when you are in a health care provider's office than when you are at home, this is called white coat hypertension. Most people with this condition do not need medicines. When your blood pressure is higher at home than when you are in a health care provider's office, this is called masked hypertension. Most people with this condition may need medicines to control blood pressure. If you have a high blood pressure reading during one visit or you have normal blood pressure with other risk factors, you may be asked to: Return on a different day to have your blood pressure checked again. Monitor your blood pressure at home for 1 week or longer. If you are diagnosed with hypertension, you may have other blood or imaging tests to help your health care provider understand your overall risk for other conditions. How is this treated? This condition is treated by making healthy lifestyle changes, such as eating healthy foods, exercising more, and reducing your alcohol intake. Your health care provider may prescribe medicine if lifestyle changes are not enough to get your blood pressure under control, and if: Your systolic blood pressure is above 130. Your diastolic blood pressure is above 80. Your personal target blood pressure may vary depending on your medical conditions, your age, and other factors. Follow these instructions at home: Eating and drinking Eat a diet that is high in fiber and potassium, and low in sodium, added sugar, and fat. An exampleeating plan is called the DASH (Dietary Approaches to Stop Hypertension) diet. To eat this way: ?Eat plenty of fresh fruits and vegetables. Try to fill one half of your plate at each meal with fruits and vegetables. ?Eat whole grains, such as whole-wheat pasta, brown rice, or whole-grain bread. Fill about one fourth of your plate with whole grains. ?Eat or drink low-fat dairy products, such as skim milk or low-fat yogurt. ?Avoid fatty cuts of meat, processed or cured meats, and poultry with skin. Fill about one fourth of your plate with lean proteins, such as fish, chicken without skin, beans, eggs, or tofu. ?Avoid pre-made and processed foods. These tend to be higher in sodium, added sugar, and fat. Reduce your daily sodium intake. Most people with hypertension should eat less than 1,500 mg of sodium a day. Do not drink alcohol if: ?Your health care provider tells you not to drink. ?You are , may be , or are planning to become . If you drink alcohol: ?Limit how much you use to: ?0 1 drink a day for women. ?0 2 drinks a day for men. ?Be aware of how much alcohol is in your drink. In the [place] one drink equals one 12 oz bottle of beer (355 mL), one 5 oz glass of wine (148 mL), or one 1 oz glass of hard liquor (44 mL). Lifestyle Work with your health care provider to maintain a healthy body weight or to lose weight. Ask what an ideal weight is for you. Get at least 30 minutes of exercise most days of the week. Activities may include walking, swimming, or biking. Include exercise to strengthen your muscles (resistance exercise), such as Pilates or lifting weights, as part of your weekly exercise routine. Try to do these types of exercises for 30 minutes at least 3 days a week. Do not use any products that contain nicotine or tobacco, such as cigarettes, e- cigarettes, and chewing tobacco. If you need help quitting, ask your health care provider. Monitor your blood pressure at home as told by your health care provider. Keep all follow-up visits as told by your health care provider. This is important. Medicines Take vjtr-lmr-vcrpwaf and prescription medicines only as told by your health care provider. Follow directions carefully. Blood pressure medicines must be taken as prescribed. Do not skip doses of blood pressure medicine. Doing this puts you at risk for problems and can makethe medicine less effective. Ask your health care provider about side effects or reactions to medicines that you should watch for. Contact a health care provider if you: Think you are having a reaction to a medicine you are taking. Have headaches that keep coming back (recurring). Feel dizzy. Have swelling in your ankles. Have trouble with your vision. Get help right away if you: Develop a severe headache or confusion. Have unusual weakness or numbness. Feel faint. Have severe pain in your chest or abdomen. Vomit repeatedly. Have trouble breathing. Summary Hypertension is when the force of blood pumping through your arteries is too strong. If this condition is not controlled, it may put you at risk for serious complications. Your personal target blood pressure may vary depending on your medical conditions, your age, and other factors. For most people, a normal blood pressure is less than 120/80. Hypertension is treated with lifestyle changes, medicines, or a combination of both. Lifestyle changes include losing weight, eating a healthy, low-sodium diet, exercising more, and limiting alcohol. This information is not intended to replace advice given to you by your health care provider. Make sure you discuss any questions you have with your health care provider. Document Released: 02/22/2006 Document Revised: 11/02/2018 Document Reviewed: 11/02/2018 [employer] Patient Education 2020 [employer]. Follow Up Care 04/25/2024 19:37:28 With:Hematology/oncology at [facility] Address: When:1-2 days Comments:Please continue to follow along With:IKER TOMLIN MD Address: [address] [address]- When:1-2 days Comments:Please call the office to schedule a hospital follow up appointment. 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 He presented to [facility] on 04/25/2024 as a transfer from [facility] after a fall from a push scooter with LOC. Upon arrival, trauma workup revealed CT head with right frontal parenchymal hemorrhage/contusion with trace subdural hematoma. CT C-spine with no acute fractures. CT abdomen/pelvis negative for acute abnormality, but did demonstrate possible cystitis, enteritis, and right lower lobe nodule versus infiltrate. Patient noted to be very agitated, and there was question of possibleseizure activity. Patient was intubated for airway protection and given Keppra. Consult was placed to neurosurgery and hematology/oncology. Hospitalist resumed care on 04/27/2024. Hematology/oncology treated with factor IX at 100% dose 9000 units 12 hours for 3 days followed by 50% dose thousand 500 units every 12 hours for 10 days to prevent worsening of intracranial hemorrhage. Neurosurgery has no plans for intervention, will have outpatient follow-up with repeat CT head in a few weeks. PT and OT evaluated patient recommending home. Patient initiated on lisinopril 20 mgdaily for blood pressure control. At this time patient is optimized for discharge. 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 Encouraged family to keep a blood pressure log at home with a goal of SBP around 140. On exam today, patient is resting comfortably in the bed, family at the bedside. Patient is hoping that he can be discharged home today. Denies any nausea, vomiting, chest pain or shortness of breath. Plan of care discussed with patient. All questions answered. Patient verbalized understanding is agreeable to plan of care. Discussed with my collaborating physician Dr. Dobbins. This dictation was performed using voice recognition software and may include grammatical and/or spelling errors. Allergies aspirin Consults Consult to Case Management/Social Service (Consult to Case Management) - Ordered -- 04/28/24 10:40:42 EST Consult to Case Management/Social Service (Consult to Case Management) - Ordered -- 04/28/24 11:19:59 EST Consult to Physician - Ordered -- 04/25/24 23:13:00 ANASTASIIA BEASLEY SUNITHA MD, Routine, Hemophilia B history with SDH, IPH Consult to Physician - Ordered -- 04/25/24 23:26:00 DERIAN BEASLEY MATTHEW F MD, Routine, Refuge Manager Imaging Results and Diagnostics XR Chest 1 View Result Date: April 26, 2024 Verified By: COLE HART MD CLINICAL STATEMENT: IMPRESSION: No focal consolidation. Heart size is normal. No pneumothorax or effusion.Mild hazy airspace disease at the lung bases. CT Maxillofacial w/o Contrast Result Date: April 26, 2024 Verified By: TREVOR FISHER MD CLINICAL STATEMENT: IMPRESSION: No facial fracture is identified. XR Chest 1 View Result Date: April 25, 2024 Verified By: JON JAVIER MD CLINICAL STATEMENT: IMPRESSION: ET tube tip projects approximately 5.4 cm proximal to manuel. Enteric tube tip projectsat the level of proximal stomach. I have personally reviewed the images of this examination and agree with theresident's findings and interpretation. XR Enteric Tube Placement Result Date: April 25, 2024 Verified By: JON JAVIER MD CLINICAL STATEMENT: IMPRESSION: Enteric tube tip projects at the level of proximal stomach. I have personally reviewed the images of this examination and agree with theresident's findings and interpretation. CT Head or Brain w/o Contrast Result Date: April 25, 2024 Verified By: RUBEN BELTRE MD CLINICAL STATEMENT: IMPRESSION: There is trace volume acute sub dural blood overlying the right frontalconvexity with trace volume subarachnoid blood in the adjacent right superiorfrontal gyrus sulci. No midline shift. Large right sided scalp hematoma. Layering fluid in the sphenoid sinuses may relate to acute sinusitis underappropriate clinical conditions. Preliminary Report was Dictated by a Resident Findings were discussed with YODIT BRIAN at 8:26 pm on 04/25/2024. I have personally reviewed the images of this examination and agree with theresident's findings and interpretation. Ruben Beltre M.D. XR Chest 1 View Result Date: April 25, 2024 Verified By: Laila_LAMAR ng CLINICAL STATEMENT: IMPRESSION: Low lung volumes with hypoventilatory changes.. Support apparatus. Physical Exam Vitals and Measurements T: 36.9 C (Oral) TMIN: 36.8 C (Oral) TMAX: 37.4 C (Oral) HR: 77 HR: 70 (Apical) RR: 16 BP: 129/67 SpO2: 99% Weight Dosing Weight: 82.6 kg (04/25/24) General: No acute distress. Alert and Appropriate Skin: No rash. Warm, Dry, Intact. Scattered abrasions noted. HEENT: Bilateral eyes with swelling and ecchymosis Lungs: Bilaterally diminished breath sounds with no crepitation or wheeze. Unlabored Cardiovascular: Heart is regular rhythm, S1S2, No extra-audible heart tones Abdomen: Abdomen is soft, nontender. Bowel sounds positive all four quadrants. Extremities: No clubbing, cyanosis or edema. Peripheral pulses palpable. No calf tenderness. Adequate peripheral circulation. Neurological: The patient is awake, oriented to self, time, place and situation. Following simple commands, moving all extremities. Code Status Code Status - Ordered -- 04/25/24 20:01:00 EST, Full Code, Constant Order Admission Date 04/25/2024 Discharge Date 04/28/2024 Patient Instructions You are scheduled to have a head CT at [facility] on 05/18/2024. This is scheduled at [facility]. Please arrive to [facility] radiology department, by 7:45 AM for this test. After CT has been completed, you will then go to the neurosurgery office for follow-up appointment with Dr. Joshi for review of CT results and reevaluation. Neurosurgery office is located on the 5th floor of the physician office building (POB), [address] (next to [facility]) No lifting more than 10 pounds No driving or flying until cleared by Neurosurgery Notify neurosurgery office or go to the ER with any new or worsening symptoms. Call neurosurgery office with any questions or concerns. Hematology is recommending to continue factor IX at 100% dose 9000 units 12 hours for through tonight, followed by 50% dose thousand 500 units every 12 hours for 10 days to prevent worsening of intracranial hemorrhage. Please continue to follow along with your filemaker developer You will be started on lisinopril 20 mg daily to assist with blood pressure Please keep a blood pressure log at home. Goal of SBP (top number) to be around 140 Please follow-up with your PCP to discuss these medication changes. Return to the ER if your symptoms worsen Medications New Prescription factor IX complex lisinopril (lisinopril 20 mg oral tablet)1 tab(s) by mouth once a day. Refills: 0. Follow Up Follow Up with Hematology/oncology at [facility] When:Within 1-2 days Additional Information: Please continue to follow along Follow Up with IKER TOMLIN MD When:Within 1-2 days Where:[address] [place] [address]- Additional Information: Please call the office to schedule a hospital follow up appointment. Follow Up with REMINGTON JOSHI MD, Neurosurgery When:05/18/2024 09:15 AM EDT Where:[address] [facility] [address] [place] [address] [phone] Follow Up Appointments No qualifying data available. Follow Up Labs/Studies Discharge Labs No Follow-up Labs Discharge Studies No Follow-up Studies Discharge Diet Discharge Diet - Ordered -- No changes were made to your diet during your hospital stay. Please resume your pre hospitalization diet on discharge., 04/28/24 14:07:00 EST Discharge Activity Discharge Activity - Ordered -- Resume your pre-hospitalization activity, 04/28/24 14:07:00 EST Condition on Discharge Stable Discharge Disposition Home Information Provided To Patient, and family at the bedside Time Spent I have spent a total of 37 minutes reviewing the patient's diagnostic labs and testing, seeing and examining the patient, and documenting in the medical record. Please see assessment for further detail. Digitally Signed by JOHANA RUCKER on 04/28/2024 02:36 PM [id number] Discharge Instructions Thank you for allowing [facility] to assist you with your healthcare needs. The following is importantdischarge information regarding your hospital visit. Your Care Team IKER TOMLIN MD What to do next Instructions From Your Doctor You are scheduled to have a head [facility] at [facility] on 05/18/2024. This is scheduled at [facility]. Please arrive to [facility] radiology department, by 7:45 AM for this test. After CT has been completed, you will then go to the neurosurgery office for follow-up appointment with Dr. Joshi for review of CT results and reevaluation. Neurosurgery office is located on the 5th floor of the physician office building (POB), [address] (next to [facility]) No lifting more than 10 pounds No driving or flying until cleared by Neurosurgery Notify neurosurgery office or go to the ER with any new or worsening symptoms. Call neurosurgery office with any questions or concerns. Hematology is recommending to continue factor IX at 100% dose 9000 units 12 hours for through tonight, followed by 50% dose thousand 500 units every 12 hours for 10 days to prevent worsening of intracranial hemorrhage. Please continue to follow along with your filemaker developer You will be started on lisinopril 20 mg daily to assist with blood pressure Please keep a blood pressure log at home. Goal of SBP (top number) to be around 140 Please follow-up with your PCP to discuss these medication changes. Return to the ER if your symptoms worsen Scheduled Follow-Up Appointments Appointment Type When With Where Contact Information StatusCT Head or Brain w/o Contrast 508:00 AM EDT [facility] Xray Confirmed NS OV 05/18/2024 09:15 AM EDT REMINGTON JOSHI MD Neurosurgery [address] [place] [phone] Confirmed Follow Up Appointments Follow Up with Hematology/oncology at [facility] When:Within 1-2 days Additional Information: Please continue to follow along Follow Up with IKER TOMLIN MD When:Within 1-2 days Where:[address] [address]- Additional Information: Please call the office to schedule a hospital follow up appointment. Follow Up with REMINGTON JOSHI MD, Neurosurgery When:05/18/2024 09:15 AM EDT Where:[address] [phone] The Following Activity and Diet Have Been Ordered for You Discharge Activity - Ordered -- Resume your pre-hospitalization activity, 04/28/24 14:07:00 EST Discharge Diet - Ordered -- No changes were made to your diet during your hospital stay. Please resume your pre hospitalization diet on discharge., 04/28/24 14:07:00 EST The Following Equipment Has Been Ordered for You Home Equipment - None No qualifying data available. The Following Treatments Have Been Ordered for You Discharge Labs No qualifying data available. Discharge Radiology No qualifying data available. Other Therapies No qualifying data available. Post Acute Orders No qualifying data available. Someone Will Contact You Regarding These Home Health Referrals No home referrals have been ordered for you. No one will call you. Allergies aspirin Immunizations This Visit Not Given Vaccine Commentstetanus/diphth/pertuss (Tdap) adult/adol Expectation Not Necessary Patient recieved vaccine prior to transfer from [facility] Medications Please ask your primary doctor or pharmacist before taking any other medication not listed, including over the counter drugs, herbal medications, vitamins and or supplements as they may interact withyour home medications. What How Much When Instructions Last Dose New factor IX complex New lisinopril (lisinopril 20 mg oral tablet) 1 tab(s) by mouth Once a day Pickup at [facility] Pharmacy Information [facility]: [address] [place] [address] [phone] Please take this list to your next doctor s visit. Bring all medications you take, including over the counter medications, herbals and other supplements with you to your doctor s visit. Patients and families are reminded to discard old lists and to update any records with all medication providers or retail pharmacies. Education Materials Hypertension, Adult Hypertension is another name for high blood pressure. High blood pressure forces your heart to workharder to pump blood. This can cause problems over time. There are two numbers in a blood pressure reading. There is a top number (systolic) over a bottom number (diastolic). It is best to have a blood pressure that is below 120/80. Healthy choices can help lower your blood pressure, or you may need medicine to help lower it. What are the causes? The cause of this condition is not known. Some conditions may be related to high blood pressure. What increases the risk? Smoking. Having type 2 diabetes mellitus, high cholesterol, or both. Not getting enough exercise or physical activity. Being overweight. Having too much fat, sugar, calories, or salt (sodium) in your diet. Drinking too much alcohol. Having long-term (chronic) kidney disease. Having a family history of high blood pressure. Age. Risk increases with age. Race. You may be at higher risk if you are . Gender. Men are at higher risk than women before age 45. After age 65, women are at higher risk than men. Having obstructive sleep apnea. Stress. What are the signs or symptoms? High blood pressure may not cause symptoms. Very high blood pressure (hypertensive crisis) may cause: ? Headache. ? Feelings of worry or nervousness (anxiety). ? Shortness of breath. ? Nosebleed. ? A feeling of being sick to your stomach (nausea). ? Throwing up (vomiting). ? Changes in how you see. ? Very bad chest pain. ? Seizures. How is this treated? This condition is treated by making healthy lifestyle changes, such as: ? Eating healthy foods. ? Exercising more. ? Drinking less alcohol. Your health care provider may prescribe medicine if lifestyle changes are not enough to get your blood pressure under control, and if: ? Your top number is above 130. ? Your bottom number is above 80. Your personal target blood pressure may vary. Follow these instructions at home: Eating and drinking If told, follow the DASH eating plan. To follow this plan: ? Fill one half of your plate at each meal with fruits and vegetables. ? Fill one fourth of your plate at each meal with whole grains. Whole grains include whole-wheat pasta, brown rice, and whole-grain bread. ? Eat or drink low-fat dairy products, such as skim milk or low-fat yogurt. ? Fill one fourth of your plate at each meal with low-fat (lean) proteins. Low-fat proteins include fish, chicken without skin, eggs, beans, and tofu. ? Avoid fatty meat, cured and processed meat, or chicken with skin. ? Avoid pre-made or processed food. Eat less than 1,500 mg of salt each day. Do not drink alcohol if: ? Your doctor tells you not to drink. ? You are , may be , or are planning to become . If you drink alcohol: ? Limit how much you use to: ? 0 1 drink a day for women. ? 0 2 drinks a day for men. ? Be aware of how much alcohol is in your drink. In the [place] one drink equals one 12 oz bottle of beer (355 mL), one 5 oz glass of wine (148 mL), or one 1 oz glass of hard liquor (44 mL). Lifestyle Work with your doctor to stay at a healthy weight or to lose weight. Ask your doctor what the best weight is for you. Get at least 30 minutes of exercise most days of the week. This may include walking, swimming, or biking. Get at least 30 minutes of exercise that strengthens your muscles (resistance exercise) at least 3 days a week. This may include lifting weights or doing Pilates. Do not use any products that contain nicotine or tobacco, such as cigarettes, e- cigarettes, and chewing tobacco. If you need help quitting, ask your doctor. Check your blood pressure at home as told by your doctor. Keep all follow-up visits as told by your doctor. This is important. Medicines Take lbym-xhp-grhavfp and prescription medicines only as told by your doctor. Follow directions carefully. Do not skip doses of blood pressure medicine. The medicine does not work as well if you skip doses.Skipping doses also puts you at risk for problems. Ask your doctor about side effects or reactions to medicines that you should watch for. Contact a doctor if you: Think you are having a reaction to the medicine you are taking. Have headaches that keep coming back (recurring). Feel dizzy. Have swelling in your ankles. Have trouble with your vision. Get help right away if you: Get a very bad headache. Start to feel mixed up (confused). Feel weak or numb. Feel faint. Have very bad pain in your: ? Chest. ? Belly (abdomen). Throw up more than once. Have trouble breathing. Summary Hypertension is another name for high blood pressure. High blood pressure forces your heart to work harder to pump blood. For most people, a normal blood pressure is less than 120/80. Making healthy choices can help lower blood pressure. If your blood pressure does not get lower with healthy choices, you may need to take medicine. This information is not intended to replace advice given to you by your health care provider. Make sure you discuss any questions you have with your health care provider. Document Released: 08/10/2008 Document Revised: 11/02/2018 Document Reviewed: 11/02/2018 [employer] Patient Education 2020 [employer] Hypertension, Adult Hypertension is another name for high blood pressure. High blood pressure forces your heart to workharder to pump blood. This can cause problems over time. There are two numbers in a blood pressure reading. There is a top number (systolic) over a bottom number (diastolic). It is best to have a blood pressure that is below 120/80. Healthy choices can help lower your blood pressure, or you may need medicine to help lower it. What are the causes? The cause of this condition is not known. Some conditions may be related to high blood pressure. What increases the risk? Smoking. Having type 2 diabetes mellitus, high cholesterol, or both. Not getting enough exercise or physical activity. Being overweight. Having too much fat, sugar, calories, or salt (sodium) in your diet. Drinking too much alcohol. Having long-term (chronic) kidney disease. Having a family history of high blood pressure. Age. Risk increases with age. Race. You may be at higher risk if you are . Gender. Men are at higher risk than women before age 45. After age 65, women are at higher risk than men. Having obstructive sleep apnea. Stress. What are the signs or symptoms? High blood pressure may not cause symptoms. Very high blood pressure (hypertensive crisis) may cause: ? Headache. ? Feelings of worry or nervousness (anxiety). ? Shortness of breath. ? Nosebleed. ? A feeling of being sick to your stomach (nausea). ? Throwing up (vomiting). ? Changes in how you see. ? Very bad chest pain. ? Seizures. How is this treated? This condition is treated by making healthy lifestyle changes, such as: ? Eating healthy foods. ? Exercising more. ? Drinking less alcohol. Your health care provider may prescribe medicine if lifestyle changes are not enough to get your blood pressure under control, and if: ? Your top number is above 130. ? Your bottom number is above 80. Your personal target blood pressure may vary. Follow these instructions at home: Eating and drinking If told, follow the DASH eating plan. To follow this plan: ? Fill one half of your plate at each meal with fruits and vegetables. ? Fill one fourth of your plate at each meal with whole grains. Whole grains include whole-wheat pasta, brown rice, and whole-grain bread. ? Eat or drink low-fat dairy products, such as skim milk or low-fat yogurt. ? Fill one fourth of your plate at each meal with low-fat (lean) proteins. Low-fat proteins include fish, chicken without skin, eggs, beans, and tofu. ? Avoid fatty meat, cured and processed meat, or chicken with skin. ? Avoid pre-made or processed food. Eat less than 1,500 mg of salt each day. Do not drink alcohol if: ? Your doctor tells you not to drink. ? You are , may be , or are planning to become . If you drink alcohol: ? Limit how much you use to: ? 0 1 drink a day for women. ? 0 2 drinks a day for men. ? Be aware of how much alcohol is in your drink. In the [place] one drink equals one 12 oz bottle of beer (355 mL), one 5 oz glass of wine (148 mL), or one 1 oz glass of hard liquor (44 mL). Lifestyle Work with your doctor to stay at a healthy weight or to lose weight. Ask your doctor what the best weight is for you. Get at least 30 minutes of exercise most days of the week. This may include walking, swimming, or biking. Get at least 30 minutes of exercise that strengthens your muscles (resistance exercise) at least 3 days a week. This may include lifting weights or doing Pilates. Do not use any products that contain nicotine or tobacco, such as cigarettes, e- cigarettes, and chewing tobacco. If you need help quitting, ask your doctor. Check your blood pressure at home as told by your doctor. Keep all follow-up visits as told by your doctor. This is important. Medicines Take lrgu-zbq-jjnskvn and prescription medicines only as told by your doctor. Follow directions carefully. Do not skip doses of blood pressure medicine. The medicine does not work as well if you skip doses.Skipping doses also puts you at risk for problems. Ask your doctor about side effects or reactions to medicines that you should watch for. Contact a doctor if you: Think you are having a reaction to the medicine you are taking. Have headaches that keep coming back (recurring). Feel dizzy. Have swelling in your ankles. Have trouble with your vision. Get help right away if you: Get a very bad headache. Start to feel mixed up (confused). Feel weak or numb. Feel faint. Have very bad pain in your: ? Chest. ? Belly (abdomen). Throw up more than once. Have trouble breathing. Summary Hypertension is another name for high blood pressure. High blood pressure forces your heart to work harder to pump blood. For most people, a normal blood pressure is less than 120/80. Making healthy choices can help lower blood pressure. If your blood pressure does not get lower with healthy choices, you may need to take medicine. This information is not intended to replace advice given to you by your health care provider. Make sure you discuss any questions you have with your health care provider. Document Released: 08/10/2008 Document Revised: 11/02/2018 Document Reviewed: 11/02/2018 [employer] Patient Education 2020 [employer] Hypertension, Adult High blood pressure (hypertension) is when the force of blood pumping through the arteries is too strong. The arteries are the blood vessels that carry blood from the heart throughout the body. Hypertension forces the heart to work harder to pump blood and may cause arteries to become narrow or stiff. Untreated or uncontrolled hypertension can cause a heart attack, heart failure, a stroke, kidneydisease, and other problems. A blood pressure reading consists of a higher number over a lower number. Ideally, your blood pressure should be below 120/80. The first (top) number is called the systolic pressure. It is a measure of the pressure in your arteries as your heart beats. The second (bottom) number is called the diastolic pressure. It is a measure of the pressure in your arteries as the heart relaxes. What are the causes? The exact cause of this condition is not known. There are some conditions that result in or are related to high blood pressure. What increases the risk? Some risk factors for high blood pressure are under your control. The following factors may make you more likely to develop this condition: Smoking. Having type 2 diabetes mellitus, high cholesterol, or both. Not getting enough exercise or physical activity. Being overweight. Having too much fat, sugar, calories, or salt (sodium) in your diet. Drinking too much alcohol. Some risk factors for high blood pressure may be difficult or impossible to change. Some of these factors include: Having chronic kidney disease. Having a family history of high blood pressure. Age. Risk increases with age. Race. You may be at higher risk if you are . Gender. Men are at higher risk than women before age 45. After age 65, women are at higher risk than men. Having obstructive sleep apnea. Stress. What are the signs or symptoms? High blood pressure may not cause symptoms. Very high blood pressure (hypertensive crisis) may cause: Headache. Anxiety. Shortness of breath. Nosebleed. Nausea and vomiting. Vision changes. Severe chest pain. Seizures. How is this diagnosed? This condition is diagnosed by measuring your blood pressure while you are seated, with your arm resting on a flat surface, your legs uncrossed, and your feet flat on the floor. The cuff of the bloodpressure monitor will be placed directly against the skin of your upper arm at the level of your heart. It should be measured at least twice using the same arm. Certain conditions can cause a difference in blood pressure between your right and left arms. Certain factors can cause blood pressure readings to be lower or higher than normal for a short period of time: When your blood pressure is higher when you are in a health care provider's office than when you are at home, this is called white coat hypertension. Most people with this condition do not need medicines. When your blood pressure is higher at home than when you are in a health care provider's office, this is called masked hypertension. Most people with this condition may need medicines to control blood pressure. If you have a high blood pressure reading during one visit or you have normal blood pressure with other risk factors, you may be asked to: Return on a different day to have your blood pressure checked again. Monitor your blood pressure at home for 1 week or longer. If you are diagnosed with hypertension, you may have other blood or imaging tests to help your health care provider understand your overall risk for other conditions. How is this treated? This condition is treated by making healthy lifestyle changes, such as eating healthy foods, exercising more, and reducing your alcohol intake. Your health care provider may prescribe medicine if lifestyle changes are not enough to get your blood pressure under control, and if: Your systolic blood pressure is above 130. Your diastolic blood pressure is above 80. Your personal target blood pressure may vary depending on your medical conditions, your age, and other factors. Follow these instructions at home: Eating and drinking Eat a diet that is high in fiber and potassium, and low in sodium, added sugar, and fat. An exampleeating plan is called the DASH (Dietary Approaches to Stop Hypertension) diet. To eat this way: ? Eat plenty of fresh fruits and vegetables. Try to fill one half of your plate at each meal with fruits and vegetables. ? Eat whole grains, such as whole-wheat pasta, brown rice, or whole-grain bread. Fill about one fourth of your plate with whole grains. ? Eat or drink low-fat dairy products, such as skim milk or low-fat yogurt. ? Avoid fatty cuts of meat, processed or cured meats, and poultry with skin. Fill about one fourth ofyour plate with lean proteins, such as fish, chicken without skin, beans, eggs, or tofu. ? Avoid pre-made and processed foods. These tend to be higher in sodium, added sugar, and fat. Reduce your daily sodium intake. Most people with hypertension should eat less than 1,500 mg of sodium a day. Do not drink alcohol if: ? Your health care provider tells you not to drink. ? You are , may be , or are planning to become . If you drink alcohol: ? Limit how much you use to: ? 0 1 drink a day for women. ? 0 2 drinks a day for men. ? Be aware of how much alcohol is in your drink. In the [place] one drink equals one 12 oz bottle of beer (355 mL), one 5 oz glass of wine (148 mL), or one 1 oz glass of hard liquor (44 mL). Lifestyle Work with your health care provider to maintain a healthy body weight or to lose weight. Ask what an ideal weight is for you. Get at least 30 minutes of exercise most days of the week. Activities may include walking, swimming, or biking. Include exercise to strengthen your muscles (resistance exercise), such as Pilates or lifting weights, as part of your weekly exercise routine. Try to do these types of exercises for 30 minutes at least 3 days a week. Do not use any products that contain nicotine or tobacco, such as cigarettes, e- cigarettes, and chewing tobacco. If you need help quitting, ask your health care provider. Monitor your blood pressure at home as told by your health care provider. Keep all follow-up visits as told by your health care provider. This is important. Medicines Take wjuw-zvg-pywtqfe and prescription medicines only as told by your health care provider. Follow directions carefully. Blood pressure medicines must be taken as prescribed. Do not skip doses of blood pressure medicine. Doing this puts you at risk for problems and can makethe medicine less effective. Ask your health care provider about side effects or reactions to medicines that you should watch for. Contact a health care provider if you: Think you are having a reaction to a medicine you are taking. Have headaches that keep coming back (recurring). Feel dizzy. Have swelling in your ankles. Have trouble with your vision. Get help right away if you: Develop a severe headache or confusion. Have unusual weakness or numbness. Feel faint. Have severe pain in your chest or abdomen. Vomit repeatedly. Have trouble breathing. Summary Hypertension is when the force of blood pumping through your arteries is too strong. If this condition is not controlled, it may put you at risk for serious complications. Your personal target blood pressure may vary depending on your medical conditions, your age, and other factors. For most people, a normal blood pressure is less than 120/80. Hypertension is treated with lifestyle changes, medicines, or a combination of both. Lifestyle changes include losing weight, eating a healthy, low-sodium diet, exercising more, and limiting alcohol. This information is not intended to replace advice given to you by your health care provider. Make sure you discuss any questions you have with your health care provider. Document Released: 02/22/2006 Document Revised: 11/02/2018 Document Reviewed: 11/02/2018 [employer] Patient Education 2020 [employer] Hypertension, Adult High blood pressure (hypertension) is when the force of blood pumping through the arteries is too strong. The arteries are the blood vessels that carry blood from the heart throughout the body. Hypertension forces the heart to work harder to pump blood and may cause arteries to become narrow or stiff. Untreated or uncontrolled hypertension can cause a heart attack, heart failure, a stroke, kidneydisease, and other problems. A blood pressure reading consists of a higher number over a lower number. Ideally, your blood pressure should be below 120/80. The first (top) number is called the systolic pressure. It is a measure of the pressure in your arteries as your heart beats. The second (bottom) number is called the diastolic pressure. It is a measure of the pressure in your arteries as the heart relaxes. What are the causes? The exact cause of this condition is not known. There are some conditions that result in or are related to high blood pressure. What increases the risk? Some risk factors for high blood pressure are under your control. The following factors may make you more likely to develop this condition: Smoking. Having type 2 diabetes mellitus, high cholesterol, or both. Not getting enough exercise or physical activity. Being overweight. Having too much fat, sugar, calories, or salt (sodium) in your diet. Drinking too much alcohol. Some risk factors for high blood pressure may be difficult or impossible to change. Some of these factors include: Having chronic kidney disease. Having a family history of high blood pressure. Age. Risk increases with age. Race. You may be at higher risk if you are . Gender. Men are at higher risk than women before age 45. After age 65, women are at higher risk than men. Having obstructive sleep apnea. Stress. What are the signs or symptoms? High blood pressure may not cause symptoms. Very high blood pressure (hypertensive crisis) may cause: Headache. Anxiety. Shortness of breath. Nosebleed. Nausea and vomiting. Vision changes. Severe chest pain. Seizures. How is this diagnosed? This condition is diagnosed by measuring your blood pressure while you are seated, with your arm resting on a flat surface, your legs uncrossed, and your feet flat on the floor. The cuff of the bloodpressure monitor will be placed directly against the skin of your upper arm at the level of your heart. It should be measured at least twice using the same arm. Certain conditions can cause a difference in blood pressure between your right and left arms. Certain factors can cause blood pressure readings to be lower or higher than normal for a short period of time: When your blood pressure is higher when you are in a health care provider's office than when you are at home, this is called white coat hypertension. Most people with this condition do not need medicines. When your blood pressure is higher at home than when you are in a health care provider's office, this is called masked hypertension. Most people with this condition may need medicines to control blood pressure. If you have a high blood pressure reading during one visit or you have normal blood pressure with other risk factors, you may be asked to: Return on a different day to have your blood pressure checked again. Monitor your blood pressure at home for 1 week or longer. If you are diagnosed with hypertension, you may have other blood or imaging tests to help your health care provider understand your overall risk for other conditions. How is this treated? This condition is treated by making healthy lifestyle changes, such as eating healthy foods, exercising more, and reducing your alcohol intake. Your health care provider may prescribe medicine if lifestyle changes are not enough to get your blood pressure under control, and if: Your systolic blood pressure is above 130. Your diastolic blood pressure is above 80. Your personal target blood pressure may vary depending on your medical conditions, your age, and other factors. Follow these instructions at home: Eating and drinking Eat a diet that is high in fiber and potassium, and low in sodium, added sugar, and fat. An exampleeating plan is called the DASH (Dietary Approaches to Stop Hypertension) diet. To eat this way: ? Eat plenty of fresh fruits and vegetables. Try to fill one half of your plate at each meal with fruits and vegetables. ? Eat whole grains, such as whole-wheat pasta, brown rice, or whole-grain bread. Fill about one fourth of your plate with whole grains. ? Eat or drink low-fat dairy products, such as skim milk or low-fat yogurt. ? Avoid fatty cuts of meat, processed or cured meats, and poultry with skin. Fill about one fourth ofyour plate with lean proteins, such as fish, chicken without skin, beans, eggs, or tofu. ? Avoid pre-made and processed foods. These tend to be higher in sodium, added sugar, and fat. Reduce your daily sodium intake. Most people with hypertension should eat less than 1,500 mg of sodium a day. Do not drink alcohol if: ? Your health care provider tells you not to drink. ? You are , may be , or are planning to become . If you drink alcohol: ? Limit how much you use to: ? 0 1 drink a day for women. ? 0 2 drinks a day for men. ? Be aware of how much alcohol is in your drink. In the [place] one drink equals one 12 oz bottle of beer (355 mL), one 5 oz glass of wine (148 mL), or one 1 oz glass of hard liquor (44 mL). Lifestyle Work with your health care provider to maintain a healthy body weight or to lose weight. Ask what an ideal weight is for you. Get at least 30 minutes of exercise most days of the week. Activities may include walking, swimming, or biking. Include exercise to strengthen your muscles (resistance exercise), such as Pilates or lifting weights, as part of your weekly exercise routine. Try to do these types of exercises for 30 minutes at least 3 days a week. Do not use any products that contain nicotine or tobacco, such as cigarettes, e- cigarettes, and chewing tobacco. If you need help quitting, ask your health care provider. Monitor your blood pressure at home as told by your health care provider. Keep all follow-up visits as told by your health care provider. This is important. Medicines Take ekmk-rnb-cjebuey and prescription medicines only as told by your health care provider. Follow directions carefully. Blood pressure medicines must be taken as prescribed. Do not skip doses of blood pressure medicine. Doing this puts you at risk for problems and can makethe medicine less effective. Ask your health care provider about side effects or reactions to medicines that you should watch for. Contact a health care provider if you: Think you are having a reaction to a medicine you are taking. Have headaches that keep coming back (recurring). Feel dizzy. Have swelling in your ankles. Have trouble with your vision. Get help right away if you: Develop a severe headache or confusion. Have unusual weakness or numbness. Feel faint. Have severe pain in your chest or abdomen. Vomit repeatedly. Have trouble breathing. Summary Hypertension is when the force of blood pumping through your arteries is too strong. If this condition is not controlled, it may put you at risk for serious complications. Your personal target blood pressure may vary depending on your medical conditions, your age, and other factors. For most people, a normal blood pressure is less than 120/80. Hypertension is treated with lifestyle changes, medicines, or a combination of both. Lifestyle changes include losing weight, eating a healthy, low-sodium diet, exercising more, and limiting alcohol. This information is not intended to replace advice given to you by your health care provider. Make sure you discuss any questions you have with your health care provider. Document Released: 02/22/2006 Document Revised: 11/02/2018 Document Reviewed: 11/02/2018 [employer] Patient Education 2020 [employer] Additional Information VACCINATE! IT SAVES LIVES! Members of the community who have not yet received the COVID-19 vaccine and would like to receive it can visit one of [facility] vaccine clinics. There are many vaccine clinic locations within the [facility]. For locations and available times, please visit https://gettheshot.coronavirus.[place].gov/. It is important to note that some COVID mobile vaccine clinics are held outdoors and may be canceled in rainy or stormy conditions. To learn more about pediatric vaccinations (ages 5-11), we invite you to visit the [facility] webpage. [email or web address].[facility]Os.org/[email or web address]-Jiuet-[email or web address] stions.htmlTo learn more about the COVID-19 vaccine, we invite you to visit the CDC website for a list of frequently asked questions.https://www.cdc.gov/coronavirus/2019-ncov/vaccines/faq.html [facility] ([facility]) Patient Portal Access Instructions: Stay connected with your healthcare team and access your personal medical information anytime with the [employer] Patient Portal. Please follow the directions below to create your [employer] account: 1.Access the email account you provided upon registration to the hospital/physician office.2.Look for an invitation email from [facility].3.Open the email and access the invitation link: AcceptInvitation to [facility] ([facility]).4.Fill in the required gordon to create your account. To access your account, visit [employer]/[email or web address]. Click the blue button labeled Access Patient Portal and then log in with the username and password that you created in the steps above. You will be able to view your test results, lab results, a summary of your visits, upcoming appointments and more. There is also a convenient messaging option where you can send secure messages to your p Parachutevider. In addition, you will have the ability to download any documents or summaries to your computer and/or send the information securely to a physician. Remember that your healthcare information is confidential, so carefully consider who you will allowto register on the [facility] ([facility]) Patient Portal for access to your information. You can also access the [facility] ([facility]) Patient Portal on the Ext[facility] yohan. Simply click on Patient Portal and then log into your account. If you would like to receive a full copy of your medical records, please contact the [facility] Medical Records Department by calling [phone], Wednesday through Wednesday between 8 a.m. and 4:30 p.m. HOW TO SAFELY DISPOSE OF PRESCRIPTION MEDICATIONS Please use one of the following methods to safely dispose of your unused medications. 1.Use a drug disposal kit: the drug disposal pouch allows you to safely discard your old and unuseddrugs. Ask your nurse to give you one when you are discharged.2.Visit a local take-back location: Many local pharmacies and police departments have programs that collect old and unwanted prescriptiondrugs. Call your local pharmacy or go to http://QD Vision.AskNshare/2R6Xg0z to find one close to you.3.Make use of household items: Use cat litter or old coffee grounds to dispose medications if other options arenot available. Mix your drugs with these household products, seal them in an airtight container andthrow it into the garbage. Call [facility]: [phone] to be sure your drugs can be disposed of in this way. Some medicines may require a different approach.4.Never flush your medications down the toilet. IF YOU HAVE BEEN PRESCRIBED AN OPIOID FOR PAIN If you have been prescribed an opioid (such as hydrocodone, oxycodone or morphine), it is critical to understand the possible side effects and risks of opioid pain medications. Even when taken as directed, opioids can have several side effects including: Tolerance, meaning you might need to take more of a medication for the same pain relief. Nausea, vomiting and/or constipation. Sleepiness, dizziness, dry mouth, confusion, depression or itching. Physical dependence, meaning you have withdrawal symptoms when a medication is stopped, can develop within a few days. KNOW YOUR RESPONSIBILITIES It is important to know exactly how much and how often to take the opioid pain medications you are prescribed. Never take opioids in higher amounts or more often than prescribed. Do not combine opioids with alcohol or other drugs that cause drowsiness, such as benzodiazepines, also known as benzos, including diazepam and alprazolam, muscle relaxants or sleep aids. Never sell or share prescription opioids. This is illegal. Store opioids in a secure place and out of reach of others (including children, family, friends and visitors). The last page of this document has been signed and retained as a CHART COPY. Signatures Patient Education Materials Hypertension, Adult, Bkie-ju-Feyk Hypertension, Adult, Lajh-uf-Jcne Hypertension, Adult Hypertension, Adult Medication Leaflets My discharge plan and instructions have been reviewed and explained to me and I,JAMES GAITAN understand my current condition and have read and understand these discharge instructions. I have received a written copy of the plan/instructions. If I have questions, I am aware that I should contact my doctor. 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 Digitally Signed by Susanne Bar Piecer on 04/28/2024 11:26 AM [id number] Hematology Progress note Date of Service 04/27/24 Subjective Patient seen during rounds this am, c/o discomfort involving the head and dizziness. Objective Vitals and Measurements T: 37.1 C (Oral) TMIN: 36.4 C (Oral) TMAX: 37.4 C (Oral) HR: 80 RR: 20 BP: 142/67 SpO2: 98% Intake and Output 7AM Yesterday to 7AM Today Intake and Output (Last 24 hours) Intake Oral Intake 120.00 Output Urine Voided 800.00 Stool Count 0.00 Emesis Count 0.00 Total Summary Total Intake 120.00 Total Output 800.00 Fluid Balance -680.00 Physical Exam Alert oriented x3 swelling has improved involving R frontal scalp and periorbital tissues. Normal speech Normal respirations Normal affect Weight Dosing Weight: 82.6 kg (04/25/24) Medications Medications (7) Active Scheduled: (3) docusate sodium 100 mg Capsule 100 mg 1 cap(s), Oral, qDay Factor IX complex 10,080 unit(s), IV Push (INT), q12h lisinopril 10 mg tablet 10 mg 1 tab(s), Oral, qDay Continuous: (0) PRN: (4) dextrose 50% Solution Disp syringe 50 mL 25 gram(s) 50 mL, IV Push, AsDirected hydralazine 20 mg/mL (1mL) vial 10 mg 0.5 mL, IV Push, q2h polyethylene glycol 3350 - UD packet 17 gram(s) 15 mL, Oral, qDay psyllium REC Packet 0.5 packet(s), Oral, qDay Lab Results 04/27 02:37 WBC: 8.5 Hgb: 12.6 L Hct: 37.3 L Platelet: 180 Neutrophil %: 84.0 H Glucose Level: 121 H Sodium Level: 140 Potassium Level: 3.6 BUN: 14.0 Creatinine Lvl (s): 0.84 EKG No qualifying data available. Assessment/Plan Orders: Factor IX Assay, 04/27/24 8:18:00 EST, Timed Study (collect at specified time), Blood, Once, Stop date 04/27/24 8:18:00 EST 73-year-old male patient with history of hemophilia B, 4% level, history of bleeding episodes with trauma, intermittent right nostril epistaxis, history of cauterization, recent hematuria for which she was awaiting urological evaluation was admitted following fall off of a push scooter. He is established with hematology oncology at [facility]. Factor IX infusion was provided around 3 AM for right scalp hematoma, small subarachnoid bleeding after fall. Hematology consulted for factor replacement. Patient's coagulation studies with normal APTT indicating replacement of factor IX. Family history 4 out of 7 sisters have known carriers, grandsons from both daughters with hemophilia. Mother carrier for hemophilia. CT face without fracture. Patient being monitored by neurosurgery service Will continue factor IX at 100% dose 9000 units 12 hours for 3 days followed by 50% dose thousand 500 units every 12 hours for 10 days to prevent worsening of intracranial hemorrhage. Following discharge patient has benefix product at home to continue home administration and will follow-up with his filemaker developer he is established with at [place]. no family present at bedside. 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 He presented to [facility] on 04/25/2024 as a transfer from [facility] after a fall from a push scooter with LOC. Upon arrival, trauma workup revealed CT head with right frontal parenchymal hemorrhage/contusion with trace subdural hematoma. CT C-spine with no acute fractures. CT abdomen/pelvis negative for acute abnormality, but did demonstrate possible cystitis, enteritis, and right lower lobe nodule versus infiltrate. Patient noted to be very agitated, and there was question of possibleseizure activity. Patient was intubated for airway protection and given Keppra. Consult was placed to neurosurgery and hematology/oncology. Hospitalist resumed care on 04/27/2024. On exam today, patient is resting comfortably in the bed, family at the bedside. Family feels that the swelling has decreased since yesterday. Patient has yet to be out of bed. Patient and family hadmultiple questions for the filemaker developer/oncologist. Objective Vitals and Measurements T: 36.4 C (Oral) TMIN: 36.4 C (Oral) TMAX: 37.4 C (Oral) HR: 73 RR: 18 BP: 164/77 SpO2: 100% Intake and Output 7AM Yesterday to 7AM Today Intake and Output (Last 24 hours) Intake Oral Intake 120.00 Output Urine Voided 802.00 Stool Count 0.00 Emesis Count 0.00 Total Summary Total Intake 120.00 Total Output 802.00 Fluid Balance -682.00 Physical Exam General: No acute distress. Alert and Appropriate Skin: No rash. Warm, Dry, Intact. Scattered abrasions noted. HEENT: Bilateral eyes with swelling and ecchymosis Lungs: Bilaterally diminished breath sounds with no crepitation or wheeze. Unlabored Cardiovascular: Heart is regular rhythm, S1S2, No extra-audible heart tones Abdomen: Abdomen is soft, nontender. Bowel sounds positive all four quadrants. Extremities: No clubbing, cyanosis or edema. Peripheral pulses palpable. No calf tenderness. Adequate peripheral circulation. Neurological: The patient is awake, oriented to self, time, place and situation. Following simple commands, moving all extremities. Weight Dosing Weight: 82.6 kg (04/25/24) Medications Medications (6) Active Scheduled: (2) docusate sodium 100 mg Capsule 100 mg 1 cap(s), Oral, qDay Factor IX complex 8,308 unit(s), IV Piggyback, q12h Continuous: (0) PRN: (4) dextrose 50% Solution Disp syringe 50 mL 25 gram(s) 50 mL, IV Push, AsDirected hydralazine 20 mg/mL (1mL) vial 10 mg 0.5 mL, IV Push, q2h polyethylene glycol 3350 - UD packet 17 gram(s) 15 mL, Oral, qDay psyllium REC Packet 0.5 packet(s), Oral, qDay Lab Results 04/27 02:37 WBC: 8.5 Hgb: 12.6 L Hct: 37.3 L Platelet: 180 Neutrophil %: 84.0 H Glucose Level: 121 H Sodium Level: 140 Potassium Level: 3.6 BUN: 14.0 Creatinine Lvl (s): 0.84 04/26 02:12 WBC: 15.5 H Hgb: 13.4 Hct: 40.2 Platelet: 209 Neutrophil %: 91.4 H Imaging Results and Diagnostics XR Chest 1 View Result Date: April 26, 2024 Verified By: COLE HART MD CLINICAL STATEMENT: IMPRESSION: No focal consolidation. Heart size is normal. No pneumothorax or effusion.Mild hazy airspace disease at the lung bases. CT Maxillofacial w/o Contrast Result Date: April 26, 2024 Verified By: TREVOR FISHER MD CLINICAL STATEMENT: IMPRESSION: No facial fracture is identified. XR Chest 1 View Result Date: April 25, 2024 Verified By: JON JAVIER MD CLINICAL STATEMENT: IMPRESSION: ET tube tip projects approximately 5.4 cm proximal to manuel. Enteric tube tip projectsat the level of proximal stomach. I have personally reviewed the images of this examination and agree with theresident's findings and interpretation. XR Enteric Tube Placement Result Date: April 25, 2024 Verified By: JON JAVIER MD CLINICAL STATEMENT: IMPRESSION: Enteric tube tip projects at the level of proximal stomach. I have personally reviewed the images of this examination and agree with theresident's findings and interpretation. CT Head or Brain w/o Contrast Result Date: April 25, 2024 Verified By: RUBEN BELTRE MD CLINICAL STATEMENT: IMPRESSION: There is trace volume acute sub dural blood overlying the right frontalconvexity with trace volume subarachnoid blood in the adjacent right superiorfrontal gyrus sulci. No midline shift. Large right sided scalp hematoma. Layering fluid in the sphenoid sinuses may relate to acute sinusitis underappropriate clinical conditions. Preliminary Report was Dictated by a Resident Findings were discussed with YODIT BRIAN at 8:26 pm on 04/25/2024. I have personally reviewed the images of this examination and agree with theresident's findings and interpretation. Ruben L. Uytana, M.D. XR Chest 1 View Result Date: April 25, 2024 Verified By: Contributor_system LAMAR CLINICAL STATEMENT: IMPRESSION: Low lung volumes with hypoventilatory changes.. Support apparatus. EKG No qualifying data available. 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 Discussed with neurosurgery ELECTRIC DRILL OPERATOR today. Cervical collar was removed yesterday. Patient is okay to work with PT and OT, orders placed. Patient will have a follow-up with Dr. Joshi in [address] head prior to visit. -Appreciate hematology/oncology input. Patient remains on BeneFIX for a total of 3 days given every12 hours. Followed by a reduced dose every 12 hours for 10 to 14 days. -Family is hoping they can use their own medication from home. Encouraged to call their oncologist (Dr Huizar at [facility]) for a new prescription and then bring the medication in. Previous medicationbrought in was rejected by pharmacy due to expiration date. -Blood pressure is fair. Continue hydralazine for SBP greater than 140. Continue SD with monitor -Patient has been weaned to room air. Continue to encourage incentive spirometer use. -No further seizure-like activity noted. -Orders placed for stool softener, MiraLAX and Metamucil for complaints of constipation. Plan of care discussed with patient, and daughter at the bedside. All questions answered. Patient verbalized understanding is agreeable to plan of care. Discussed with my collaborating physician Dr. Dobbins. This dictation was performed using voice recognition software and may include grammatical and/or spelling errors. Level of Care Indication SD monitor (other: specify in note) DVT Prophylaxis Contraindicated Maintenance IVF Indication NA / No maintenance IVF Indwelling Urinary Catheter Indication NA No indwelling catheter Anticipated Timeline of Discharge 24 hours Anticipated DC Disposition Pending Therapy Evaluation Time Spent I have spent a total of 33 minutes reviewing the patient's diagnostic labs and testing, seeing and examining the patient, and documenting in the medical record. Please see assessment for further detail. Digitally Signed by JOHANA RUCKER on 04/27/2024 01:31 PM [facility] [id number] Telephone encounter Note* Telephone Encounter - Madonna Simmons [facility] - 04/27/2024 1:51 PM EST See TE from today for patient update. Per [facility] providers, will send RX for Benefix dosed to 50% to be infused daily x 14 days upon discharge from hospital Wt Readings from Last 1 Encounters: 04/21/24 79.8 kg (176 lb) Baseline level 4% 4830 units to achieve 50% RX sent. Called [employer] and confirmed will ship out today for delivery tomorrow, requires signature. [facility]02-20-2025 Miscellaneous Notes* Telephone Encounter - Madonna Simmons [facility] - 04/27/2024 1:51 PM EST See TE from today for patient update. Per [facility] providers, will send RX for Benefix dosed to 50% to be infused daily x 14 days upon discharge from hospital Wt Readings from Last 1 Encounters: 04/21/24 79.8 kg (176 lb) Baseline level 4% 4830 units to achieve 50% RX sent. Called [employer] and confirmed will ship out today for delivery tomorrow, requires signature. 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 He presented to [facility] on 04/25/2024 as a transfer from [facility] after a fall from a push scooter with LOC. Upon arrival, trauma workup revealed CT head with right frontal parenchymal hemorrhage/contusion with trace subdural hematoma. CT C-spine with no acute fractures. CT abdomen/pelvis negative for acute abnormality, but did demonstrate possible cystitis, enteritis, and right lower lobe nodule versus infiltrate. Patient noted to be very agitated, and there was question of possibleseizure activity. Patient was intubated for airway protection and given Keppra. Consult was placed to neurosurgery and hematology/oncology. Hospitalist resumed care on 04/27/2024. On exam today, patient is resting comfortably in the bed, family at the bedside. Family feels that the swelling has decreased since yesterday. Patient has yet to be out of bed. Patient and family hadmultiple questions for the filemaker developer/oncologist. Objective Vitals and Measurements T: 36.4 C (Oral) TMIN: 36.4 C (Oral) TMAX: 37.4 C (Oral) HR: 73 RR: 18 BP: 164/77 SpO2: 100% Intake and Output 7AM Yesterday to 7AM Today Intake and Output (Last 24 hours) Intake Oral Intake 120.00 Output Urine Voided 802.00 Stool Count 0.00 Emesis Count 0.00 Total Summary Total Intake 120.00 Total Output 802.00 Fluid Balance -682.00 Physical Exam General: No acute distress. Alert and Appropriate Skin: No rash. Warm, Dry, Intact. Scattered abrasions noted. HEENT: Bilateral eyes with swelling and ecchymosis Lungs: Bilaterally diminished breath sounds with no crepitation or wheeze. Unlabored Cardiovascular: Heart is regular rhythm, S1S2, No extra-audible heart tones Abdomen: Abdomen is soft, nontender. Bowel sounds positive all four quadrants. Extremities: No clubbing, cyanosis or edema. Peripheral pulses palpable. No calf tenderness. Adequate peripheral circulation. Neurological: The patient is awake, oriented to self, time, place and situation. Following simple commands, moving all extremities. Weight Dosing Weight: 82.6 kg (04/25/24) Medications Medications (6) Active Scheduled: (2) docusate sodium 100 mg Capsule 100 mg 1 cap(s), Oral, qDay Factor IX complex 8,308 unit(s), IV Piggyback, q12h Continuous: (0) PRN: (4) dextrose 50% Solution Disp syringe 50 mL 25 gram(s) 50 mL, IV Push, AsDirected hydralazine 20 mg/mL (1mL) vial 10 mg 0.5 mL, IV Push, q2h polyethylene glycol 3350 - UD packet 17 gram(s) 15 mL, Oral, qDay psyllium REC Packet 0.5 packet(s), Oral, qDay Lab Results 04/27 02:37 WBC: 8.5 Hgb: 12.6 L Hct: 37.3 L Platelet: 180 Neutrophil %: 84.0 H Glucose Level: 121 H Sodium Level: 140 Potassium Level: 3.6 BUN: 14.0 Creatinine Lvl (s): 0.84 04/26 02:12 WBC: 15.5 H Hgb: 13.4 Hct: 40.2 Platelet: 209 Neutrophil %: 91.4 H Imaging Results and Diagnostics XR Chest 1 View Result Date: April 26, 2024 Verified By: COLE HART MD CLINICAL STATEMENT: IMPRESSION: No focal consolidation. Heart size is normal. No pneumothorax or effusion.Mild hazy airspace disease at the lung bases. CT Maxillofacial w/o Contrast Result Date: April 26, 2024 Verified By: TREVOR FISHER MD CLINICAL STATEMENT: IMPRESSION: No facial fracture is identified. XR Chest 1 View Result Date: April 25, 2024 Verified By: JON JAVIER MD CLINICAL STATEMENT: IMPRESSION: ET tube tip projects approximately 5.4 cm proximal to manuel. Enteric tube tip projectsat the level of proximal stomach. I have personally reviewed the images of this examination and agree with theresident's findings and interpretation. XR Enteric Tube Placement Result Date: April 25, 2024 Verified By: JON JAVIER MD CLINICAL STATEMENT: IMPRESSION: Enteric tube tip projects at the level of proximal stomach. I have personally reviewed the images of this examination and agree with theresident's findings and interpretation. CT Head or Brain w/o Contrast Result Date: April 25, 2024 Verified By: RUBEN BELTRE MD CLINICAL STATEMENT: IMPRESSION: There is trace volume acute sub dural blood overlying the right frontalconvexity with trace volume subarachnoid blood in the adjacent right superiorfrontal gyrus sulci. No midline shift. Large right sided scalp hematoma. Layering fluid in the sphenoid sinuses may relate to acute sinusitis underappropriate clinical conditions. Preliminary Report was Dictated by a Resident Findings were discussed with YODIT BRIAN at 8:26 pm on 04/25/2024. I have personally reviewed the images of this examination and agree with theresident's findings and interpretation. Ruben Beltre M.D. XR Chest 1 View Result Date: April 25, 2024 Verified By: Contributor_LAMAR ng CLINICAL STATEMENT: IMPRESSION: Low lung volumes with hypoventilatory changes.. Support apparatus. EKG No qualifying data available. 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 Discussed with neurosurgery ELECTRIC DRILL OPERATOR today. Cervical collar was removed yesterday. Patient is okay to work with PT and OT, orders placed. Patient will have a follow-up with Dr. Joshi in [address] head prior to visit. -Appreciate hematology/oncology input. Patient remains on BeneFIX for a total of 3 days given every12 hours. Followed by a reduced dose every 12 hours for 10 to 14 days. -Family is hoping they can use their own medication from home. Encouraged to call their oncologist (Dr Huizar at [facility]) for a new prescription and then bring the medication in. Previous medicationbrought in was rejected by pharmacy due to expiration date. -Blood pressure is fair. Continue hydralazine for SBP greater than 140. Continue SD with monitor -Patient has been weaned to room air. Continue to encourage incentive spirometer use. -No further seizure-like activity noted. -Orders placed for stool softener, MiraLAX and Metamucil for complaints of constipation. Plan of care discussed with patient, and daughter at the bedside. All questions answered. Patient verbalized understanding is agreeable to plan of care. Discussed with my collaborating physician Dr. Dobbins. This dictation was performed using voice recognition software and may include grammatical and/or spelling errors. Level of Care Indication SD monitor (other: specify in note) DVT Prophylaxis Contraindicated Maintenance IVF Indication NA / No maintenance IVF Indwelling Urinary Catheter Indication NA No indwelling catheter Anticipated Timeline of Discharge 24 hours Anticipated DC Disposition Pending Therapy Evaluation Time Spent I have spent a total of 33 minutes reviewing the patient's diagnostic labs and testing, seeing and examining the patient, and documenting in the medical record. Please see assessment for further detail. Digitally Signed by JOHANA RUCKER on 04/27/2024 01:31 PM [id number] History and physical note Date of Service 04/26/2024 This is a split/shared history and physical with Dr. Joshi Chief Complaint Closed head injury History of Present Illness James is a 73-year-old male with a PMH significant for hemophilia B with a 4% severity and hernia repair who presented to [facility] after a fall from a push scooter. Patient noted with positive LOC. Upon arrival to ED, patient underwent noncontrasted head CT which demonstrated a right frontal parenchymal hemorrhage/contusion with trace subdural hematoma. Patient noted to be very agitated, and there was question of possible seizure activity with short jerking movements. Patient was intubated for airway protection and given 1 g of Keppra. In addition, patient had a CT cervical spine which demonstrated no acute fractures or subluxation, as well as a CT of the abdomen/pelvis which was negative for any acute abnormality but did demonstrate possible cystitis, enteritis, and right lower lobe nodule versus infiltrate. Given his history of hemophilia B, patient was given 8000 units of BeneFIX. [facility]. Repeat head CT was completed yesterday evening around 8 PM appeared to have remained stable. CT maxillofacial completed this morning was negative for any acute facial fractures. This morning, patient is seen resting in bed. He is on mechanical ventilator, however propofol infusion has been interrupted about 5 minutes prior to my exam. He is easily arousable, opens both eyes to command (though struggles on the right due to edema). PERRLA. In addition, able to give me a thumbs up on the right hand when asked, squeeze both of my hands and wiggle his toes to command. He doeshave an obvious right frontal cephalhematoma with surrounding ecchymosis, and abrasions. Scattered ecchymosis. No drainage from the ears or nose. Does have a hard cervical collar in place. Review of Systems Unable to complete review of systems given patient is intubated. Physical Exam Vitals and Measurements T: 37.5 C (Oral) TMIN: 36.6 C (Axillary) TMAX: 37.8 C (Oral) HR: 83 (Monitored) RR: 15 (Total) BP: 129/60 SpO2: 99% HT: 165.1 cm WT: 82.6 kg BMI: 30.3 Weight Dosing Weight: 82.6 kg (04/25/24) General: Arousable, on mechanical ventilator. HEENT: See HPI Neck: Immobilized in hard cervical collar Cardiac: Heart regular rate and rhythm Respiratory: Lungs clear to auscultation A/P Abdomen: Soft, nontender, bowel sounds present x4 MS: Moves all extremities spontaneously Vascular: Pedal pulses are normal bilaterally, no edema Neuro: See HPI. Do not appreciate any lateralizing deficit. Skin: Warm, scattered abrasions Lab Results 04/26 02:12 WBC: 15.5 H Hgb: 13.4 Hct: 40.2 Platelet: 209 Neutrophil %: 91.4 H 04/25 21:38 Platelet: 195 04/25 19:52 WBC: 12.3 H Hgb: 13.7 Hct: 40.6 Platelet: 202 Neutrophil %: 89.5 H Protime: 11.9 PT International Ratio: 1.0 Glucose Level: 142 H Sodium Level: 139 Potassium Level: 3.6 BUN: 11.0 Creatinine Lvl (s): 0.88 Imaging Results and Diagnostics XR Chest 1 View Result Date: April 26, 2024 Verified By: COLE HART MD CLINICAL STATEMENT: IMPRESSION: No focal consolidation. Heart size is normal. No pneumothorax or effusion.Mild hazy airspace disease at the lung bases. CT Maxillofacial w/o Contrast Result Date: April 26, 2024 Verified By: TREVOR FISHER MD CLINICAL STATEMENT: IMPRESSION: No facial fracture is identified. XR Chest 1 View Result Date: April 25, 2024 Verified By: JON JAVIER MD CLINICAL STATEMENT: IMPRESSION: ET tube tip projects approximately 5.4 cm proximal to manuel. Enteric tube tip projectsat the level of proximal stomach. I have personally reviewed the images of this examination and agree with theresident's findings and interpretation. XR Enteric Tube Placement Result Date: April 25, 2024 Verified By: JON JAVIER MD CLINICAL STATEMENT: IMPRESSION: Enteric tube tip projects at the level of proximal stomach. I have personally reviewed the images of this examination and agree with theresident's findings and interpretation. CT Head or Brain w/o Contrast Result Date: April 25, 2024 Verified By: RUBEN BELTRE MD CLINICAL STATEMENT: IMPRESSION: There is trace volume acute sub dural blood overlying the right frontalconvexity with trace volume subarachnoid blood in the adjacent right superiorfrontal gyrus sulci. No midline shift. Large right sided scalp hematoma. Layering fluid in the sphenoid sinuses may relate to acute sinusitis underappropriate clinical conditions. Preliminary Report was Dictated by a Resident Findings were discussed with YODIT BRIAN at 8:26 pm on 04/25/2024. I have personally reviewed the images of this examination and agree with theresident's findings and interpretation. Ruben Beltre M.D. XR Chest 1 View Result Date: April 25, 2024 Verified By: Contributor_systemLAMAR CLINICAL STATEMENT: IMPRESSION: Low lung volumes with hypoventilatory changes.. Support apparatus. Assessment/Plan Closed head injury James is a 73-year-old male with PMH significant for hemophilia B who initially presented to [facility] after a fall from his push scooter, striking his head on the ground. +LOC. Initial head CT completed at [facility] demonstrated a right frontal parenchymal hemorrhage/contusion with a trace subdural hematoma. Patient noted to be agitated in ED with short jerking movements, concerning for possible seizure. He was given 1 g of Keppra and was intubated for airway protection. Repeat head CT completed yesterday evening was reviewed by Dr. Joshi and noted to be stable. Given patient's history of hemophilia B, [facility] filemaker developer was contacted by dental ceramist team and patient was ordered treatment with BeneFIX. This morning, patient seen off of sedation, is awake and following simple commands. Do not appreciate any lateralizing deficit. He is cleared for extubation from a neurosurgical standpoint, at the discretion of the dental ceramist. Continue close neuromonitoring and notify neurosurgery with any changes in exam or patient concerns. Maintain SBP less than 140 mmHg. Patient has only required 1 dose of hydralazine overnight. SCDs for DVT prophylaxis. He will need to remain in hard cervical collar at this time until he is extubated and able to participate in exam. At that point in time, we will reevaluate the patient to see if we can clear his cervical spine. CT of the cervical spine completed at [facility] was negative for any acute fractures or subluxation. Hemophilia B Patient with history of hemophilia B with 4% severity. Refuge Manager JULIANNE did reach out to hematologyat [facility] who provided recommendations regarding treatment of hemophilia B in the setting of ICH. Recommendation at this time is for BeneFIX 113 units/kg q12h for 1 to 3 days, followed by a 50% dosage decreased for an additional 10 to 14 days based on patient's risk for bleeding. Hematology has been consulted here at [place] per the dental ceramist team. Will defer further management regarding need for BeneFIX treatments and dosing to their team. Refuge Manager team following for critical care management. Appreciate their help. Dr. Joshi hasrequested transfer of service to dental ceramist at this time. Family not present at the bedside during evaluation, however will stop back to provide update. Please see Dr. Joshi's addendum for further details regarding neurosurgical assessment/plan of care. Problem List/Past Medical History See HPI Procedure/Surgical History See HPI Allergies aspirin Social History Unable to obtain as patient is currently intubated Family History Unable to obtain as patient is currently intubated Code Status Code Status - Ordered -- 04/25/24 20:01:00 EST, Full Code, Constant Order Digitally Signed by EZEKIEL OMALLEY on 04/26/2024 10:09 AM [id number] Hematology Consult note Date of Service 04/26/2024 Reason for Consultation Hemophilia B History of Present Illness This is a 73-year-old male with a past medical history significant for hemophilia B with a 4% severity and hernia repair. The patient presented to [facility] emergency department after sustaining a fall off of a push scooter. The patient lost consciousness after this fall. During his CT scans the patient became agitated and combative therefore he was intubated and placed on mechanical ventilation. The CT of the brain without contrast completed showing a right frontal parenchymal hemorrhage/contusion with a trace subdural hematoma. On exam the patient was resting comfortably in bed he had been extubated to room air. The patient'swife and family are at the bedside. He denied any shortness of breath or chest pain at this time. He is somewhat confused as to what happened yesterday on the push scooter. He is concerned about receiving his BeneFIX for his hemophilia B, I assured him we will be ordering these for him. Review of Systems Review of systems in negative unless noted in the above HPI. Physical Exam Vitals and Measurements T: 37.5 C (Oral) TMIN: 36.6 C (Axillary) TMAX: 37.8 C (Oral) HR: 88 (Monitored) RR: 20 BP: 131/59 SpO2: 100% HT: 165.1 cm WT: 82.6 kg BMI: 30.3 General: No apparent distress. Neurological: Alert and oriented x3. Forgetful Cardiovascular: Regular rate and rhythm, S1 and S2 noted. No extra-audible heart tones. Respiratory: Bilaterally clear breath sounds with no crepitation or wheeze. Dry cough noted Abdominal: Soft, nontender and nondistended. No guarding. Bowel sounds present. Extremities: No edema. Adequate peripheral circulation. Skin: warm and dry. Multiple scattered contusions and bruising on the right side of head and face noted. Psychological: appropriate mood and affect Weight Dosing Weight: 82.6 kg (04/25/24) Lab Results 04/26 02:12 WBC: 15.5 H Hgb: 13.4 Hct: 40.2 Platelet: 209 Neutrophil %: 91.4 H 04/25 21:38 Platelet: 195 04/25 19:52 WBC: 12.3 H Hgb: 13.7 Hct: 40.6 Platelet: 202 Neutrophil %: 89.5 H Protime: 11.9 PT International Ratio: 1.0 Glucose Level: 142 H Sodium Level: 139 Potassium Level: 3.6 BUN: 11.0 Creatinine Lvl (s): 0.88 Imaging Results and Diagnostics (04/25/2024 20:[address] Head or Brain w/o Contrast) IMPRESSION: There is trace volume acute sub dural blood overlying the right frontal convexity with trace volume subarachnoid blood in the adjacent right superior frontal gyrus sulci. No midline shift. Large right sided scalp hematoma. Layering fluid in the sphenoid sinuses may relate to acute sinusitis under appropriate clinical conditions. Assessment/Plan Hemophilia B: This is a 73-year-old male with a past medical history significant for hemophilia B with a 4% severity and hernia repair. The patient presented to [facility] emergency department after sustaining a fall off of a push scooter. The patient lost consciousness after this fall. During his CT scans the patient became agitated and combative therefore he was intubated and placed on mechanical ventilation. The CT of the brain without contrast completed showing a right frontal parenchymal hemorrhage/contusion with a trace subdural hematoma. Due to the patient's history of hemophilia B and received 8000 units of BeneFIX IV push secondary to CT results. The patient follows with Dr Huizar at [facility], recently seen 04/21/2024. The patient received a emergency medical information card with dosing guidelines for any major bleeds with recommendation for the administration of BeneFIX at a dose of 113 units/kg. The critical care team was able to review this information with Dr. Reid, a filemaker developer contestant coordinator for [facility] in which he recommended additionaldosing of BeneFIX 113 units/kg every 12 hours for the next 1 to 3 days followed by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 hemophilia B (4%). Thrombotic risk History of thrombosis? CV risk: The ASCVD Risk score (Ye GLOVER, et al., 2019) failed to calculate for the following reasons: The systolic blood pressure is missing Cannot find a previous HDL lab Cannot find a previous total cholesterol lab Tobacco Use: Low Risk (01/22/2023) Patient History Smoking Tobacco Use: Never Smokeless Tobacco Use: Never Passive Exposure: Not on file Insurance: none Specialty Pharmacy: [facility] (current through 03/2025) Bleeding Log 04/21/24 Disorder: hemophilia B (4%) Treatment: Benefix Medications Tried: Any adverse effects? Self infuse? No, son in law or nephew infuses Treatment type: on demand Adherence? good Bleeding history: with trauma Bleeding in the last 3 months? Nosebleeds every other day x5-10 minutes last year, did not use Benefix (uses Mahi Holder Extract) On demand factor use since last visit? no Admissions related to bleeding disorder since last visit: No Upcoming procedures? No Upcoming high bleed risk activities? No Doses remaining at home: at least 3 (some are ) Refill needed? Yes Other concerns: elevated BP, including on repeat. Reports at home 170s SBP. PCP Dr. Tomlin. No exercise currently, busy at work. Educated on cardiovascular exercise and monitoring sodium. He is not interested in starting a BP med today but will call to make an appt with his PCP Current weight: Wt Readings from Last 3 Encounters: 04/21/24 79.8 kg (176 lb) 01/22/23 72.6 kg (160 lb) 05/30/15 76.4 kg (168 lb 6.4 oz) [place] body weight: 61.5 kg (135 lb 9.3 oz) Adjusted ideal body weight: 68.8 kg (151 lb 12 oz) Treatment dose appropriate based on patient weight? yes within 10%, 9030 units to achieve 90% (targeting higher as past dosing did not resolve bleeds Treatment adequate to control bleeding? yes Considerations for treatment adjustment: None PLAN Continue Benefix PRN Call to schedule appt with PCP re: BP Problem list updated with current emergency plan Defer to Chadd freeman note for full therapy plan. The following clinical intervention(s) beyond standard practice occurred during today s visit: Provided therapy recommendations or management for safe and effective medication use and Provided therapy recommendations or management for symptoms * LACEY Chavez - 04/21/2024 9:00 AM EST Worker spoke with pt for annual outreach clinic visit. Pt with Hemophilia B. National Bleeding Disorder Chapter Chapter membership: unknown Medical ID: wears for travel [employer]: Pt is needing a crown eventually and interested in enrolling in program. Transport: Pt utilized a delivery truck driver heavy and expressed interest in getting reimbursed. Medical team considerations: Spouse, Jud, is interested and agreeable to schedule an infusion skills training with nurse coordinator on 08/18/24 at 9AM. SW Interventions/Recommendations SW provided [employer] forms and had pt sign a vendor ID form. SW will continue to remain available to provide assistance and support as needed. * Chadd Chatman PA-C - 04/21/2024 9:00 AM EST H[facility]ology [facility] Hemostasis and Thrombosis Hemophilia B: -Baseline: 4% (as per records), no laboratory values to be reviewed -History of severe bleeding: AQUATIC HABITAT BIOLOGIST (-), GI (-), Neck (-) -Muscle Bleed (No), Joint Bleed (Bilateral Knees), trauma related, last . Procedures/Surgery (+) -Bleeding events since last visit (01/2023): Yes. Epistaxis- episodic. Would last 5-10 minutes at a time, dripping and involving the R nostril which has been cauterized in the past, last about 2-3 years ago. Using mahi holder extract orally which has been helping. Did not take factor Hematuria- last week, and was passing clots. No recurrence since. Did not take factor -Target Joints (self reported): None -Factor replacement strategy: On demand -Product: BeneFIX. Has unexpired and doses at home. -Infusion: nephews can infuse if needed -Viral Studies: Hep B Ab (-), HIV (-), Hep C (-) by 2002 -Blood Products: Yes (after prostate surgery for BPH, 2016) -Last PCP visit: Goes when there are issues. -Last dental visit: Goes when there are issues. -Family (Siblings/Children/Parents): Sisters x 7 (4/7) known carriers. Children x 3 (Female x 2 + Son x 1) w/ grandsons with hemophilia from both [facility]. Mother (carrier) -Labor: Calender Tender Interval History: Presents at today's clinic appointment with today. Has had epistaxis events, and hematuria x 1over the last year, did not take factor for either event. For epistaxis, takes mahi holder extract which helps. BP elevated. No upcoming procedures/surgeries at this time. Has gained some weight over the last year. Past Medical History: Diagnosis Date Hemophilia Past Surgical History: Procedure Laterality Date HERNIA REPAIR 1982 Family History Problem Relation Age of Onset No known problems Mother Heart Disease - Other Father No known problems Sister No known problems Maternal Grandmother No known problems Maternal Grandfather No known problems Paternal Grandmother No known problems Paternal Grandfather No known problems Sister No known problems Sister No known problems Sister No known problems Sister No known problems Sister No known problems Sister Bleeding or Clotting Problems Other nephew Social History Tobacco Use Smoking status: Never Smokeless tobacco: Never Substance Use Topics Alcohol use: No Drug use: No Review of Systems Constitutional: Negative for malaise/fatigue. HENT: Positive for nosebleeds. Cardiovascular: Negative for chest pain, dyspnea on exertion and leg swelling. Respiratory: Negative for hemoptysis and shortness of breath. Hematologic/Lymphatic: Does not bruise/bleed easily. Gastrointestinal: Negative for abdominal pain, hematemesis, hematochezia and melena. Genitourinary: Positive for hematuria (event last week). Outpatient Medications Prior to Visit Medication Sig Dispense Refill HAWTHORN HOLDER PO Take by mouth as needed for Other (nosebleeds). coagulation factor 9 recombinant 3000 units Kit 8,215 Units by Intravenous route daily as needed for Other (bleeds). +/-10% Please ship additional supplies with factor (NS flushes, 10ml syringes, alcohol wipes) 3 Each 11 No facility-administered medications prior to visit. PHYSICAL EXAM: Vitals: 04/21/24 0915 04/21/24 0941 BP: (!) 172/101 Pulse: 59 56 Resp: 12 Temp: 98.7 degrees F (37.1 degrees C) TempSrc: Infrared SpO2: 96% Weight: 79.8 kg (176 lb) Height: 1.651 m (5' 5) Physical Exam Constitutional: General: He is not in acute distress. Appearance: Normal appearance. He is normal weight. He is not toxic-appearing. HENT: Head: Normocephalic and atraumatic. Eyes: Comments: EOMs intact to tracking examiner in room Cardiovascular: Rate and Rhythm: Normal rate and regular rhythm. Heart sounds: Normal heart sounds. Pulmonary: Effort: Pulmonary effort is normal. Breath sounds: Normal breath sounds. Abdominal: General: Bowel sounds are normal. There is no distension. Palpations: Abdomen is soft. Tenderness: There is no abdominal tenderness. Musculoskeletal: General: No swelling or tenderness. Skin: General: Skin is warm and dry. Neurological: General: No focal deficit present. Mental Status: He is alert. Psychiatric: Mood and Affect: Mood normal. 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 Pt with events of epistaxis from R nostril over the last year, has required cauterization in the past. Last week had event have hematuria and passing blood clots. Continue Benefix on demand. Will reschedule infusion lesson. Labs ordered: CBC, CMP, Iron , Iron Sat, TIBC, transferrin, Ferritin, Retic, Factor 9 activity, Factor 9 inhibitor level, HIV, Hep B ( Hep B surface antibody, Hep B surface antigen, and Hep B Core antibody IgG & IgM), Hep C, Vitamin D Stat referral to Urology for hematuria. If epistaxis recurs, will need to consider ENT referral. Encouraged pt to talk with daughters who are obligate carriers of hemophilia to have their FIX levels checked and can be established with [facility]. Encouraged pt to establish with PCP/Family med and Dentistry for routine care. Declined referrals at this time. RTC 1 year. Pt will contact clinic for bleeding or suspected bleeding events, use of factor, upcoming procedures/surgeries. Chadd Chatman PA-C Hematology documented in this encounterA[facility] Instructions* Patient Instructions* Charlene Carpenter RN - 04/21/2024 9:00 AM EST Follow up in one year at [facility] with BIRGIT Parsons. Please take outside lab order provided to you today in clinic to a local lab and have labs performed before your next appointment. [facility] Your Team: Today's Provider: Chadd Chatman PA-C Providers: Dr. Bhaskar Milian, Jaycee Jaime, DIE STORAGE CLERK, and Chadd Chatman PA-C Clinical Coordinators: Aziza Pharmacists: Natalia Peacock Physical Therapist: Natalie Cake Knocker: Christiana Research Coordinator: Elsi After Hours Medication refills Please allow 1 week for all medication refills. You may request refills via WiOffer or by calling [phone]. Paperwork Please allow 2 weeks to complete all paperwork including but not limited to disability, FMLA, and insurance paperwork. Please clarify what to do once they are completed, including any fax numbers or addresses needed. ReserveOut is a secure way to get access to ask non urgent questions and access your lab results online. For questions or concerns regarding WiOffer access or technical difficulties, please call [phone] or toll free at . Appointment's/ No show visits If you arrive late to your scheduled appointment, you may be asked to reschedule your visit. Pleasecall [phone] at least 24 hours in advance if you are not able to make it to your scheduled visit. If you have three no show visits within one year, you will be discharged from our practice. Hemophilia Patient Instructions Please download and use the [employer] yohan to keep a log of bleeding episodes and treatment or Factor infusions. Bring the record to every visit with the filemaker developer. Bleeding episode logs aid indiagnosis and treatment of Hemophilia. For non-emergent questions or issues during business hours please call the [facility] ([facility]) at [phone]. For any of the following, please notify the [facility] ([facility]) Nurses at [phone] during normal business hours, or after hours the Hematology triage line at [phone]. Any signs or symptoms of a bleeding episode: including prolonged bleeding after injury or surgery, joint or muscle pain swelling or redness, oral bleeding, nose bleeding, heavy menstrual bleeding. Any time you use factor or think you may need to use factor. Serious bleeds require immediate physician assessment: For any of the following, please proceed to the emergency department (ED) for assessment and then notify the [facility] at [phone]. Head trauma, concussion, eye injury, throat injury, blood in urine or stools, abdominal injury, groin bleed or injury, major trauma, car accident. Bleeding may occur spontaneously. Early treatment with Factor replacement will prevent complications. Emergency Department Locations and Instructions The [facility] Emergency Department (Main [place]): [address] [place] [id number] Phone number: The [facility] Emergency Departments are currently unable to use/administer factor brought with you from home. The [facility] Emergency Department [facility]: [address] [place] [address] Phone number: The [facility] Emergency Departments are currently unable to use/administer factor brought with you from home. Surgeries and Procedures: A minimum notice of two weeks is required prior to all surgeries or procedures. Inability to notify the [facility] in this time frame could result in the need to postpone/reschedule yourupcoming surgery/procedure. Please notify the [facility] of ANY upcoming surgeries or procedures including dental procedures. Pre procedure and post procedure treatment may be recommended. Completed recommendation letters will be provided to requesting provider's office approximately twoweeks prior to procedure date. If you have not been seen in our office within the past year, we cannot legally provide any surgical clearance or medical recommendations. Travel: Please notify the [facility] of any upcoming travel plans that you may need a travel letter for. A minimum notice of two weeks is requested for all travel letters. Inability to notify the [facility] in this time frame could result in delays. Safety Measures: A medical alert is recommended for all patients diagnosed with a bleeding disorder to wear. Please notify your [facility] of your sports activity, especially high contact or collision sports. Please wear all recommended helmets and padding for sports activities, and hobbies. CAVANAUGH each joint/muscle bleed (protect, rest, ice, compress, elevate) Medications to Avoid with a Bleeding Disorder Aspirin and NSAIDs such as Ibuprofen (Advil, Motrin), Naproxen (Aleve) and Ketorolac (Toradol) can also increase bleeding symptoms. Please speak with your treatment team prior to taking any of these medications. Bleeding Logs: Keeping an updated and accurate bleeding log is important for the management of your bleeding disorder and assistance in the following: Allows you to review how well your medication is working Allows your treatment team to make changes to your treatment plan if and when needed Most insurance plans now require bleeding logs for continued payment of your factor product Will support any future disability claims you may make A bleeding log should include: A record of all bleeds, including date and time of bleed, severity and location of bleed, and othersymptoms experienced A record of all medication administrations, including date and time given, medication name, expiration date, lot number, amount used, and reason for use (prophylaxis, pre-surgery, bleed management) If a bleeding log is kept on paper, please bring these to your annual visit with the treatment team Options for phone/computer applications to keep bleeding logs include [address] and [employer]. Ask your treatment team for more information documented in this encounterAdena [facility]11-13-2024 Telephone encounter Note* Telephone Encounter - Charlene Carpenter RN - 01/19/2024 2:42 PM EST Letter mailed [facility]11-13-[facility]24 Miscellaneous Notes* Telephone Encounter - Charlene Carpenter RN - 01/19/2024 2:42 PM EST Letter mailed * Telephone Encounter - Charlene Carpenter RN - 12/17/2023 12:18 PM EDT Patient is due for yearly required comprehensive visit with [facility]. RN calls pt at listed home phone number and it is no longer connected. No other phone numbers or contacts listed for patient. Letter to be mailed. documented in this encounterAdena [facility] Center10-11-2024 Telephone encounter Note* Telephone Encounter - Charlene Carpenter RN - 12/17/2023 12:18 PM EDT Patient is due for yearly required comprehensive visit with [facility]. RN calls pt at listed home phone number and it is no longer connected. No other phone numbers or contacts listed for patient. Letter to be mailed. [facility] Future Appointments Appointment Date:05/18/2024 08:00:00 AM Scheduled Provider: Location:[facility] Appointment Type:CT Head or Brain w/o Contrast Appointment Date:05/18/2024 09:15:00 AM Scheduled Provider:REMINGTON JOSHI MD Location:[facility] Appointment Type:NS OV Future Scheduled Tests Radiology* CT Head or Brain w/o Contrast 05/18/24 [facility] Evaluation + Plan note Future Appointments Appointment Date:05/19/2024 11:45:00 AM Scheduled Provider:REMINGTON JOSHI MD Location:[facility] Appointment Type:NS OV [facility] Evaluation note* Diagnosis Hemophilia B in male- Primary documented in this encounter [facility]* Diagnosis Onset Date Resolution Status Admit Date Essential (primary) hypertension acu te July 19, 2024 10:49am Syncope acute July 19, 2024 10:49am [facility] Work Phone: Hospital course Narrative No data available for this section [facility] Hospital Discharge instructions No data available for this section [facility] Progress note No data available for this section [facility] Reason for referral (narrative)No reason for referral [facility] Work Phone: Summary Purpose Family History No Family History Records Found Relationship Condition Age at Onset Recorded Date/T abdullahi Not Specified Unknown Advance Directives No Advanced Directives Records FoundNo Advanced Directives Records FoundNo Advanced Directives Records FoundNo Advanced Directives Records FoundNo Advanced Directives Records FoundNo Advanced Directives Records FoundNo Advanced Directives Records Found Chief Complaint and Reason for Visit Chief Complaint Admit Date Black out ([place]) July 19, 2024 10:49 am Reason for Visit Admit Date Essential (primary) hypertension July 10:49am Syncope July 19, 2024 10:49 am Additional Source Comments (unrecognized sect ion and content) No Status Records FoundNo Status Records FoundNo Status Records FoundNo Status Records FoundNo Status Records FoundNo Status Records FoundNo Status Records Found INFORMATION SOURCE (unrecogn ized section and content) DATE CREATED AUTHOR 04/10/2019 [facility] ([place]) DATE CREATED AUTHOR AUTHOR'S ORGANIZ ATION 04/29/2024 [facility] DATE CREATED AUTHOR AUTHOR'S ORGANIZ ATION 06/10/2024 [facility] DATE CREATED AUTHOR AUTHOR'S ORGANIZ ATION 06/21/2024 [facility] DATE CREATED AUTHOR AUTHOR'S ORGANIZ ATION 07/12/2024 [facility] DATE CREATED AUTHOR AUTHOR'S ORGANIZ ATION 07/16/2024 [facility] DATE CREATED AUTHOR AUTHOR'S ORGANIZ ATION 07/20/2024 [facility] Reason for Visit (unrecogniz ed section and content) Reason Onset Date Comments Other 12/17/2023 Reason Comments Hemophilia Reason Onset Date Comments Coagulation disorder 04/27/2024 Reason Onset Date Comments Other 05/04/2024 Reason Onset Date Comments Other 05/09/2024 Care Teams (unrecognized sec tion and content) Coil Finisher Relationship Specialty Start Date End Date Hector Adams MD [address] [place] [address] PCP - General Family Medicine 05/30/15 Coil Finisher Relationship Specialty Start Date End Date Hector Adams MD [address] [place] [address] PCP - General Family Medicine 05/30/15 Coil Finisher Relationship Specialty Start Date End Date Hector Adams MD [address] [place] [address] PCP - General Family Medicine 05/30/15 Coil Finisher Relationship Specialty Start Date End Date Hector Adams MD [address] [place] [address] PCP - General Family Medicine 05/30/15 Coil Finisher Relationship Specialty Start Date End Date Hector Adams MD [address] [place] [address] PCP - General Family Medicine 05/30/15 Coil Finisher Relationship Specialty Start Date End Date Hector Adams MD [address] [place] [address] PCP - General Family Medicine 05/30/15 Team Status: Active Member Role Status Dates No Primary Care Physician Family Provider Active Dr. Iker Tomlin MD Primary Care Provider Active Team Status: Inactive Member Role Status Dates No Primary Care Physician Referring Provider Active Start: July 19, 2024 End: July 19, 2024 Dr. Cl Brooks MD Attending Provider Active S tart: July 19, 2024 End: July 19, 2024 Dr. Iker Tomlin MD Primary Care Provider Active Start: July 19, 2024 End: July 19, 2024 Goals (unrecognized section and content) Goals may be documented in a n alternate section FOR RECORDS PERTAINING TO PATIENTS WHO ARE OR HAVE BEEN ENROLLED IN A CHEMICAL DEPENDENCY/SUBSTANCEABUSE PROGRAM, SOME INFORMATION MAY BE OMITTED. This clinical summary was aggregated from multiple sources. Caution should be exercised in using it in the provision of clinical care. This summary normalizes information from multiple sources, and as a consequence, information in this document may materially change the coding, format and clinical context of patient data. In addition, data may be omitted in some cases. CLINICAL DECISIONS SHOULD BE BASED ON THE PRIMARY CLINICAL RECORDS. [facility]. provides no warranty or guarantee of the accuracy or completeness of information in this document.
== END | disposition home or self-care (01) ==
PROVIDERS: PCP Family Medicine; Referring Provider Internal Medicine Cardiovascular Disease; Visit Provider Internal Medicine Cardiovascular Disease
DX: R55 Syncope and collapse (principal)
CPT/HCPCS: 93225; 93226; 93306